=== PATIENT | female | born 1950 | race Caucasian/White ===

== ENCOUNTER 2017-07-01 17:46 | Inpatient (IN) | payer MEDICARE, BC ==
[2017-07-01] MEDS ORDERED: Ondansetron HCl/PF 4 MG/2 ML Vial IVP PRN ×2 (20:32→20:36)
[2017-07-01] MEDS ORDERED: Sodium Chloride 0.9% 1,000 ML IV SCH (20:32)
[2017-07-01] MEDS ORDERED: Ondansetron ODT 4 MG TAB SL PRN (20:32)
[2017-07-01] MEDS ORDERED: Ondansetron ODT 4 MG TAB PO PRN (20:36)
[2017-07-01] MEDS ORDERED: Dextrose 50% Abboject 50 ML SYRINGE SLOW IVP PRN (20:36)
[2017-07-01] MEDS ORDERED: Dextrose 5% in Water 1,000 ML IV PRN (20:36)
[2017-07-01] MEDS ORDERED: hydrALAZINE 20 MG/ML VIAL SLOW IVP PRN (20:36)
[2017-07-01] MEDS ORDERED: HumaLOG 300 UNITS/3 ML VIAL SC PRN (20:36)
[2017-07-01] MEDS ORDERED: Ketorolac Tromethamine 30 MG/ML VIAL IVP PRN (20:39)
[2017-07-01] MEDS ORDERED: traMADol HCl 50 MG TAB PO PRN ×2 (20:42)
[2017-07-01] MEDS ORDERED: Scopolamine 1.5 mg/72 hour Patch TD SCH (21:30)
[2017-07-01] MEDS: Pregabalin 50 MG CAP PO SCH (21:49)
[2017-07-01] MEDS: Famotidine/PF 20 mg/2ml Vial SLOW IVP SCH (21:49)
[2017-07-01] MEDS: Enoxaparin Sodium 40 MG/0.4 ML SYRINGE SC SCH (21:50)
[2017-07-01] MEDS: Sodium Chloride 0.9% 1,000 ML IV SCH (21:51)
[2017-07-01] MEDS ORDERED: Piperacillin/Tazobactam 3.375 GM in Sodium Chloride 0.9% 100 ML IVPB SCH (22:00)
[2017-07-01] MEDS: Acetaminophen 1,000 MG in Premix Bag 1 BAG IVPB SCH (23:57)
[2017-07-01] MEDS: ALPRAZolam 0.5 MG TAB PO PRN (23:57)
[2017-07-02 00:13] VITALS: BMI 43.4
[2017-07-02] MEDS: Piperacillin/Tazobactam 3.375 GM in Sodium Chloride 0.9% 100 ML IVPB SCH ×2 (00:41→06:24)
[2017-07-02 05:17] LABS: #Lymphocytes 0.8 thou/uL (1.20-3.40); #Neutrophils 14.9 thou/uL (1.40-6.50); %Basophils 0.1 % (0.0-1.0); %Eosinophils 0.2 % (0.0-10.0); %Lymphocytes 4.6 % (21.0-51.0); %Monocytes 5.9 % (0.0-10.0); Hematocrit 30.9 % (36.0-47.0); Red Blood Cell (RBC) Count 3.29 mill/uL (4.20-5.40); White Blood Cell (WBC) Count 16.7 thou/uL (4.8-10.8)
[2017-07-02 05:30] LABS: ALT (SGPT) 344 U/L (8-55); AST (SGOT) 226 U/L (5-34); Alkaline Phosphatase 379 U/L (40-150); Anion Gap 12 mmol/L (10-20); BUN (Urea Nitrogen) 29 mg/dL (9.8-20.1); Calc. Creatinine Clearance 78 mL/min (70-130); Calcium 8.6 mg/dL (7.8-10.44); Carbon Dioxide 19 mmol/L (23-31); Chloride 111 mmol/L (98-107); Estimated GFR-MDRD 42; Globulin 2.6 g/dL (2.4-3.5); Protein, Total 5.7 g/dL (6.0-8.3)
--- NOTE | 2017-07-02 05:46 | HP ---
HISTORY OF PRESENT ILLNESS: Melanie Sim is a 66-year-old female who presents to the emergency r o with epigastric right upper quadrant pain, transferred to our emergency room from [facility]. Patient lives near [facility] with her . She has not had previous such described sympt oms. In the emergency room, she was noted to have a white count of 14, hemoglobin of 12, BUN 26, GFR 85, creatinine 1.22, glucose 157, sodium 143, potassium 4.4, chloride 108, bilirubin was elevated to 4.2, AST 457, ALT 545, alkaline phosphatase 525. Lipase was normal at 20. Patient underwent gallbl adder ultrasound revealing a bile duct of 4 mm, fatty liver changes, sludge and stones in the lumen o f the gallbladder, sonographically positive Tillman's sign. Patient has had a prior laparoscopic Abhishek -en-Y gastric bypass. Dr. Lerma, for iron deficiency anemia, performed an upper endoscopy on 017 noting mild grade A erosive gastritis, post Abhishek-en-Y gastric bypass changes, he attempted colono scopy, but it was incomplete due to strictured colon. She subsequently underwent a barium enema with air contrast noting a very redundant colon, minimal diverticulosis, no other abnormalities noted. T here were no obstructive changes. HOME MEDICATIONS: Tramadol p.r.n., she does not take this every day; metformin 1000 mg at bedtime, L yrica 50 mg t.i.d., multivitamins daily, lisinopril 10 mg a day, 250 mg a day, Xanax 0.5 mg b.i .d.; Ultram p.r.n. for chronic low back pain, she does not take this every day; she has iron infusion s periodically, she takes multivitamins, post gastric bypass. TOBACCO: None. ALCOHOL: None. ALLERGIES: LATEX. PAST SURGICAL HISTORY: Left elbow surgery by Dr. Curiel two weeks ago at the [facility] i n 2007. She had a laparoscopic hiatal hernia repair and laparoscopic Abhishek-en-Y gastric bypass; preop erative weight 310 pounds, lost down to 225 pounds, her weight now is 244 pounds. In 1998, total abd ominal hysterectomy, bilateral salpingo-oophorectomy, and surgery for vulvar cancer with radiation th erapy, lymph node dissection, chemotherapy in 2010. 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 REVIEW OF SYSTEMS: Ten-point otherwise noncontributory. PHYSICAL EXAMINATION: VITAL SIGNS: Weight 110 kilograms, temperature 99.3 degrees, respiratory rate 14, blood pressure 110 /70, heart rate 93. HEAD, EYES, EARS, NOSE AND THROAT: Unremarkable. Sclerae nonicteric. LUNGS: Clear to auscultation. CARDIAC: Regular rhythm without murmur or gallop. ABDOMEN: Obese, soft. Tenderness in right upper quadrant with guarding. EXTREMITIES: Unremarkable. SKIN: Nonjaundiced. ASSESSMENT AND PLAN: 1. Cholecystitis, acute. We would recommend intravenous antibiotics, IV fluids, n.p.o. except for e ssential medications. We would plan laparoscopic cholecystectomy tomorrow, cholangiograms. Her live r function test elevation is suspicious for choledocholithiasis, but her bile duct is only 4 mm in di ameter by ultrasound. We will obtain cholangiogram. If she does have choledocholithiasis, she may n eed to be transferred for ERCP, which would be difficult status post Abhishek-en-Y gastric bypass. 2. Morbid obesity, status post Abhishek-en-Y gastric bypass. 3. LATEX allergy. 4. History of squamous cell carcinoma of the anus, status post radiation. 5. History of vulvar cancer, status post radiation surgery. 6. Diabetes mellitus. 7. Hypertension. 8. Lymphedema. 9. Anxiety.
[2017-07-02] MEDS: Sodium Chloride 0.9% 1,000 ML IV SCH ×2 (06:16→14:53)
[2017-07-02] MEDS: Acetaminophen 1,000 MG in Premix Bag 1 BAG IVPB SCH ×2 (06:16→11:42)
[2017-07-02] MEDS: Pregabalin 50 MG CAP PO SCH ×3 (09:01→21:43)
[2017-07-02] MEDS: Morphine PF 1 MG/ML SYR IVP PRN ×2 (09:07→23:18)
[2017-07-02] MEDS: Famotidine/PF 20 mg/2ml Vial SLOW IVP SCH (09:15)
[2017-07-02] MEDS ORDERED: Bupivacaine/Epinephrine 0.25% 30 ML VIAL ONE (11:01)
[2017-07-02] MEDS ORDERED: Fentanyl 250 MCG/5 ML VIAL ONE (11:20)
[2017-07-02] MEDS ORDERED: Iothalamate Meglumine 60% 50 ML VIAL FS ONE (11:35)
[2017-07-02] MEDS ORDERED: Propofol 200 MG/20 ML VIAL ONE (11:42)
[2017-07-02] MEDS ORDERED: Dexamethasone 20 MG/5 ML VIAL ONE (11:42)
[2017-07-02] MEDS ORDERED: Esmolol 100 MG/10 ML VIAL ONE (11:42)
[2017-07-02] MEDS ORDERED: PHENYLEPHRINE-NS 100 MCG/ML 10 ML SYRINGE ONE (11:42)
[2017-07-02] MEDS ORDERED: Glycopyrrolate 0.2 MG/ML 5 ML SYRINGE ONE (11:42)
[2017-07-02] MEDS ORDERED: ePHEDrine/0.9% NaCl/PF SYRINGE 50 mg/10 ml ONE (11:42)
[2017-07-02] MEDS ORDERED: Lidocaine 1% PF 5 ML VIAL ONE (11:42)
[2017-07-02] MEDS ORDERED: Ondansetron HCl/PF 4 MG/2 ML Vial ONE (11:42)
[2017-07-02] MEDS ORDERED: Piperacillin/Tazobactam 3.375 GM VIAL ONE (11:58)
[2017-07-02] MEDS ORDERED: Promethazine HCl 25 MG/ML VIAL ONE (13:26)
[2017-07-02] MEDS ORDERED: Midazolam HCl 2 mg/2 ml Vial ONE (13:29)
--- NOTE | 2017-07-02 13:33 | OP ---
DATE OF PROCEDURE: 07/02/2017 PREOPERATIVE DIAGNOSES: Cholecystitis, cholelithiasis, common bile duct 6 mm by ultrasound and eleva eder liver function tests, and history of Abhishek-en-Y gastric bypass. POSTOPERATIVE DIAGNOSES: Cholecystitis, cholelithiasis, and common bile duct 6 millimeters by ultras ound and elevated liver function tests, history of Abhishek-en-Y gastric bypass with positive cholangiogr am and drainage of contrast into the duodenum with multiple large filling defects and a dilated commo n bile duct (definitely size greater than 6 mm contrary to preoperative ultrasound). PROCEDURE: Laparoscopic cholecystectomy, laparoscopic cholangiograms revealing multiple filling defe cts in the common bile duct with drainage into the duodenum and multiple small debris draining from t he cystic duct, stapled white load Endo-FORREST cystic duct closure due to the large nature. SURGEON: Dhiraj Rutherford M.D. ANESTHESIA: General. NOTE: I discussed with Dr. Barreto and Dr. Tania Read [facility] gastroenterologists, transferred f or an intraoperative ERCP through the gastric remnant and we will plan to transfer this weekend for p rocedure earlier next week. ESTIMATED BLOOD LOSS: Less than 25 mL. BLOOD TRANSFUSED: None. COMPLICATIONS: None. SPECIMEN: Gallbladder and contents. PROCEDURE: The patient taken to the operating room where under general anesthesia, abdomen was prepa red with ChloraPrep, draped in routine fashion. Local anesthetic infiltrated in the skin and subcuta neous tissue about each port sites. Due to her morbid obesity status, supraumbilical incision made i n midline and pneumoperitoneum to 15 mmHg obtained with the Veress needle, replacing it with a 5 port and laparoscope inserted. Right subxiphoid incision made and 11 port placed. Right subcostal incis ion made, mid clavicular anterior axillary lines and 5 ports placed. Liver appeared to be normal. F undus of gallbladder grasped and reflected cephalad. Omental adhesions to the gallbladder body taken down and stripped down identifying the infundibulum of the gallbladder, reflecting it laterally. Cy stic artery and duct dissected free. Critical view obtained, 2/3 dissection cystic plate and cystic artery identified, doubly clipped proximally. Cystic ducts then clipped on the gallbladder side. An opening made in the cystic duct and cholangiocath inserted and cholangiogram was obtained using fluo roscopy revealing free flow of contrast into the duodenum, but the common bile duct was markedly dila eder. There are multiple filling defects. Cholangiocath removed and debris irrigated with pulse irri gator and then the cystic duct stump was evaluated and it was too large to seal with a clip. The 11 mm port exchanged for a 12 port under laparoscopic visualization and a white load Endo-FORREST stapler us ed to seal the cystic duct under laparoscopic visualization and the gallbladder dissected free from t he liver bed obtaining good hemostasis prior to division of final peritoneal attachments. Gallbladde r and contents removed. Good hemostasis ensured. I then discussed with Dr. Barreto, Dr. Read per telephone and best option would be to transfer her for intraoperative General liaison inspection laboratory assistant at [facility] for ERCP and decompression. The patient tolerated the procedure well as irri abdirashid and pneumoperitoneum evacuated. Good hemostasis ensured. All instruments removed and all skin incisions approximated with interrupted subdermal 4-0 Monocryl and DermaGlue applied.
[2017-07-02] MEDS ORDERED: Fentanyl 100 MCG/2 ML VIAL ONE (13:42)
[2017-07-02] MEDS ORDERED: ALPRAZolam 0.5 MG TAB PO PRN ×2 (14:28→14:37)
[2017-07-02] MEDS ORDERED: Cyclobenzaprine 10 MG TAB PO PRN (14:28)
[2017-07-02] MEDS ORDERED: traMADol HCl 50 MG TAB PO PRN (14:28)
[2017-07-02] MEDS ORDERED: PROVENTIL INHALER 6.7 G (200 INHALATIONS) INH PRN (14:28)
[2017-07-02] MEDS: Morphine 4 MG/ML VIAL SLOW IVP PRN ×2 (14:52→18:02)
[2017-07-02] MEDS ORDERED: rOPINIRole HCl 1 MG TAB PO SCH (15:00)
[2017-07-02] MEDS: rOPINIRole HCl 1 MG TAB PO SCH ×2 (17:34→21:43)
--- NOTE | 2017-07-02 17:37 | RAD ---
CHEST ONE VIEW 07/02/17 HISTORY: Central line placement. COMPARISON: Chest one view 08/11/16. FINDINGS: No pneumothorax is appreciated. The central venous catheter tip is in the cavoatrial junction. Lungs are hypoinflated with vascular crowding and linear opacity in the left lung base. Severe degenerative disease of both shoulder joints. IMPRESSION: Uncomplicated placement of central venous catheter with tip at the cavoatrial junction. POS: [facility]
[2017-07-02] MEDS: Piperacillin/Tazobactam 3.375 GM, Admixture Fee 1 EACH in Sodium Chloride 0.9% 100 ML IVPB SCH ×2 (18:07→23:18)
--- NOTE | 2017-07-02 18:44 | PRG ---
DATE OF SERVICE: 07/02/2017 I have discussed the plan with Roney's family regarding transfer to [facility]. I have discussed her care with Dr. Barreto and his associate, Dr. Read, and their P A, Isabel. Plan is to transfer them on 07/04/2017Wednesday to the [facility] receiving Hospitalist who I have talked to on the phone regarding the transfer and they will then undergo surgically salomon eder laparoscopy or laparotomy, ERCP through the gastric remnant. Questions answered. The patient christianson s poor IV access and a central line was placed for administration of intravenous antibiotics and preh ospital care. She will be transferred by ambulance on Wednesday.
--- NOTE | 2017-07-02 19:42 | OP ---
PREOPERATIVE DIAGNOSES: Morbid obesity, poor IV access, choledocholithiasis. POSTOPERATIVE DIAGNOSES: Morbid obesity, poor IV access, choledocholithiasis. PROCEDURE: Right subclavian vein central line. SURGEON: Dr. Dhiraj Rutherford ANESTHESIA: 1% Xylocaine. PROCEDURE: At the patient's bedside in sterile technique, right periclavicular area was prepared wit h chloraprep, draped in routine fashion. A 1% Xylocaine infiltrated into skin and subcutaneous tissu e about the operative site. Trocar catheter introduced infraclavicular right subclavian vein and goo d return of venous blood obtained. J-wire threaded, trocar catheter removed. Seldinger technique us ed to place triple lumen catheter, removing the J-wire, securing the catheter with 3-0 silk suture. Biopatch sterile dressing applied. Each port aspirated blood and flushed with saline solution.
[2017-07-02] MEDS: Enoxaparin Sodium 40 MG/0.4 ML SYRINGE SC SCH (21:43)
[2017-07-02] MEDS ORDERED: Acetaminophen 500 MG TAB PO PRN (23:59)
[2017-07-03] MEDS: Piperacillin/Tazobactam 3.375 GM, Admixture Fee 1 EACH in Sodium Chloride 0.9% 100 ML IVPB SCH ×4 (05:27→23:59)
[2017-07-03 05:29] LABS: #Basophils 0.2 thou/uL (0.0-0.2); #Lymphocytes 0.5 thou/uL (1.20-3.40); #Monocytes 0.7 thou/uL (0.11-0.59); %Basophils 1.2 % (0.0-1.0); %Eosinophils 0.1 % (0.0-10.0); %Lymphocytes 3.4 % (21.0-51.0); %Monocytes 4.4 % (0.0-10.0); Hematocrit 31.1 % (36.0-47.0); Mean Platelet Volume 7.6 fL (7.4-10.4); Red Blood Cell (RBC) Count 3.31 mill/uL (4.20-5.40); White Blood Cell (WBC) Count 15.4 thou/uL (4.8-10.8)
[2017-07-03 05:59] LABS: ALT (SGPT) 259 U/L (8-55); AST (SGOT) 119 U/L (5-34); Alkaline Phosphatase 338 U/L (40-150); Anion Gap 11 mmol/L (10-20); BUN (Urea Nitrogen) 20 mg/dL (9.8-20.1); Bilirubin, Total 3.3 mg/dL (0.2-1.2); Calc. Creatinine Clearance 82 mL/min (70-130); Calcium 8.8 mg/dL (7.8-10.44); Carbon Dioxide 22 mmol/L (23-31); Chloride 106 mmol/L (98-107); Estimated GFR-MDRD 45; Globulin 2.8 g/dL (2.4-3.5); Protein, Total 5.8 g/dL (6.0-8.3)
--- NOTE | 2017-07-03 07:35 | DIS ---
DATE OF ADMISSION: 07/01/2017 ANTICIPATED TRANSFER: [facility], 07/04/2017. DISCHARGE DIAGNOSES: Choledocholithiasis, cholecystitis, acute and chronic, morbid obesity, metaboli c syndrome, type 2 diabetes mellitus, mild chronic kidney disease. HOME MEDICATIONS: Ropinirole 1 tab p.o. t.i.d., tramadol p.r.n., metformin 1000 mg at bedtime, Kinza a 50 mg t.i.d., multivitamins daily, lisinopril 10 mg a day, Lactobacillus 1 capsule daily, Flexeril 10 mg as directed p.r.n., vitamin D3 daily, buspirone 30 mg daily, albuterol 2 puffs as directed, alp razolam 1 tablet 0.5 mg p.o. b.i.d. as needed. PROCEDURES AT HOSPITALIZATION: 1. On 07/01/2017, ultrasound gallstones, bile duct 6 mm, positive sonographic Tillman's sign. White count 16, hemoglobin 9.8. Sodium 138, chloride 111, bilirubin 4.0, AST 226, ALT 344, alkaline phosph atase 379, BUN ranged from normal 10 to 25 to 29 over the years. Creatinine normal 0.7 to 1.27, 07/17 is 1.07; 07/01/2017, 1.22. 2. Chronic iron-deficiency anemia on an iron infusion administered by Hematology. 3. Status post left elbow surgery, Dr. Curiel to have golden out next week. We will contact clayton townsend Allergies to LATEX. 4. Recent upper endoscopy by Dr. Lerma performed for iron-deficiency anemia. 5. Recent colonoscopy by Dr. Lerma, Gastroenterology, revealing inability to cannulate and negotiate sigmoid colon, completion of barium enema normal without obstructive lesions or abnormalities. 6. History of vulvar cancer, status post chemoradiation therapy. 7. History of squamous cell carcinoma of the anus, status post chemoradiation therapy. 8. History of hysterectomy. PROCEDURES DURING THIS HOSPITALIZATION: Ultrasound as noted above, laparoscopic cholecystectomy, cho langiograms, contrast drainage of the duodenum, multiple filling defects in the common bile duct, acu te cholecystitis, thickened wall. HISTORY: A 66-year-old female presents with a several week history of intermittent right flank pain, right upper quadrant pain, anorexia. She has a history of laparoscopic Abhishek-en-Y gastric bypass. S he lost weight initially, regained weight. She has been evaluated for iron-deficiency anemia with up per endoscopy and follow by Hematology with iron infusions. She takes her vitamins daily. She prese nts on this occasion with severe right upper quadrant pain and white count of 14 on admission, 16 on 07/02/2017. Liver function tests elevated as described. The patient underwent laparoscopic cholecys tectomy and cholangiograms, above findings. With her Abhishek-en-Y gastric bypass status, discussion was held with Dr. Dennis and Dr. Read. Our plan is to transfer to [facility], Wednesday, for laparoscopic or general surgical assistance for gastric remnant cannulation and ERCP. Harman jacobs will follow up in my office in 2 to 3 weeks.
[2017-07-03] MEDS ORDERED: Non-Formulary Item 1 EACH (Buspirone Hcl [Buspirone Hcl] 30 MG) PO SCH (09:00)
[2017-07-03] MEDS ORDERED: Lisinopril 20 MG TAB PO SCH (09:00)
[2017-07-03] MEDS ORDERED: Non-Formulary Item 1 EACH (Multivitamin [Multivitamins] 1 CAP) PO SCH (09:00)
[2017-07-03] MEDS ORDERED: Non-Formulary Item 1 EACH (Cholecalciferol (Vitamin D3) [Vitamin D3] 5,000 UNIT) PO SCH (09:00)
[2017-07-03] MEDS ORDERED: Non-Formulary Item 1 EACH (Lactobacillus Acidophilus [Probiotic] 1 CAPSULE) PO SCH (09:00)
[2017-07-03] MEDS: Pregabalin 50 MG CAP PO SCH ×3 (09:10→20:15)
[2017-07-03] MEDS: Lactinex Tablet PO SCH (09:12)
[2017-07-03] MEDS: Multivit, Therapeutic 1 TAB PO SCH (09:12)
[2017-07-03] MEDS: busPIRone HCl 10 MG TAB PO SCH (09:13)
[2017-07-03] MEDS: Lisinopril 10 MG TAB PO SCH (09:14)
[2017-07-03] MEDS: rOPINIRole HCl 1 MG TAB PO SCH ×3 (09:16→20:16)
--- NOTE | 2017-07-03 09:58 | RAD ---
OPERATIVE CHOLANGIOGRAM: Date: 07/02/17 HISTORY: Intraoperative film. FINDINGS: This single film shows several filling defects in the distal common duct which is very suspicious for stones. There is also a probable stone in the proximal duct near the bifurcation. IMPRESSION: Filling defects within the common duct very suspicious for gallstones. POS: [facility]
--- NOTE | 2017-07-03 13:15 | PRG ---
DATE OF SERVICE: 07/03/2017 ATTENDING PHYSICIAN: Dwain Adan M.D. SUBJECTIVE: The patient is postoperative day #1 status post laparoscopic cholecystectomy with IOC. Multiple filling defects in the common bile duct were noted. Due to the patient's previous history of Abhishek-en-Y gastric bypass, transfer to [facility] is needed for general surgical assistance for gastric remnant cannulation and ERCP. At this time, she remains stable on the surgical floor. She denies passing flatus or having bowel movement. WBC is trending down slightly from 16.7-15.4. She continues on IV Zosyn. OBJECTIVE: VITAL SIGNS: Temperature 98.3, pulse 93, respirations 18, O2 sat 93% on room air, blood pressure 102/54. HEENT: Unremarkable. HEART: Regular rate and rhythm. LUNGS: Clear to auscultation. ABDOMEN: Laparoscopic surgical incisions without signs or symptoms of infection. Minimal incisional tenderness. No guarding, no masses. EXTREMITIES: Neurovascularly intact. NEUROLOGIC: Awake, alert and oriented x3. ASSESSMENT: 1. Cholecystitis with cholelithiasis status post laparoscopic cholecystectomy. 2. S/P Intraoperative cholangiogram with filling defect noted. 3. History of Abhishek-en-Y gastric bypass. PLAN: Continue current care as ordered. Plan to transfer to [facility] for assistance with needed ERCP in AM. History, surgical procedures and plan of care have been discussed with the accepting physicians by Dr. Rutherford. Review of systems, assessment and plan of care have been discussed with attending trauma surgeon. REYNALDO
[2017-07-03] MEDS: Enoxaparin Sodium 40 MG/0.4 ML SYRINGE SC SCH (20:12)
[2017-07-04] MEDS: ALPRAZolam 0.5 MG TAB PO PRN (01:36)
[2017-07-04] MEDS: Piperacillin/Tazobactam 3.375 GM, Admixture Fee 1 EACH in Sodium Chloride 0.9% 100 ML IVPB SCH (06:20)
[2017-07-04] MEDS: rOPINIRole HCl 1 MG TAB PO SCH (08:44)
[2017-07-04] MEDS: Multivit, Therapeutic 1 TAB PO SCH (08:44)
[2017-07-04] MEDS: busPIRone HCl 10 MG TAB PO SCH (08:44)
[2017-07-04] MEDS: Pregabalin 50 MG CAP PO SCH (08:45)
[2017-07-04] MEDS: Lactinex Tablet PO SCH (08:45)
[2017-07-04] MEDS: Lisinopril 10 MG TAB PO SCH (08:49)
[2017-07-04 10:18] VITALS: BP 119/61; TEMP 98.5
== END 2017-07-04 09:57 | disposition short-term general hospital (02) | DRG 418 ==
LOC: ERS 17:46 → INTOOBSV 18:10 → SURG A 18:10 → OBSVTOIN 07-02 15:05
PROVIDERS: ADMIT Specialist; ATTEND Specialist
PROC: 0FT44ZZ Resection of Gallbladder, Percutaneous Endoscopic Approach (ICD-10-PCS; principal; 2017-07-02)
PROC: BF101ZZ Fluoroscopy of Bile Ducts using Low Osmolar Contrast (ICD-10-PCS; 2017-07-02)
PROC: 02HV33Z Insertion of Infusion Device into Superior Vena Cava, Percutaneous Approach (ICD-10-PCS; 2017-07-02)
PROC: B5181ZA Fluoroscopy of Superior Vena Cava using Low Osmolar Contrast, Guidance (ICD-10-PCS; 2017-07-02)
DX: K80.00 Calculus of gallbladder with acute cholecystitis without obstruction (principal); K80.42 Calculus of bile duct with acute cholecystitis without obstruction; E88.81 Metabolic syndrome and other insulin resistance; I10 Essential (primary) hypertension; E11.9 Type 2 diabetes mellitus without complications; D50.9 Iron deficiency anemia, unspecified; Z68.41 Body mass index [BMI] 40.0-44.9, adult; E66.01 Morbid (severe) obesity due to excess calories; Z98.84 Bariatric surgery status; Z85.048 Personal history of other malignant neoplasm of rectum, rectosigmoid junction, and anus; Z85.44 Personal history of malignant neoplasm of other female genital organs; I89.0 Lymphedema, not elsewhere classified; F41.9 Anxiety disorder, unspecified; Z87.891 Personal history of nicotine dependence
CPT/HCPCS: 36415; 36416; 47532; 71010; 80053; 85025; 88304; 93005; J0131; J1100; J1610; J1642; J1650; J1750; J1885; J1956; J2001; J2250; J2270; J2274; J2405; J2543; J2550; J2704; J3010; J7050; Q9961; S0028

== ENCOUNTER 2017-11-04 17:14 | Inpatient (IN) | payer MEDICARE, BC ==
[2017-11-04 20:28] LABS: #Eosinphils 0.1 thou/uL (0.0-0.7); #Lymphocytes 1.1 thou/uL (1.20-3.40); #Monocytes 0.6 thou/uL (0.11-0.59); #Neutrophils 6.7 thou/uL (1.40-6.50); %Basophils 0.1 % (0.0-1.0); %Eosinophils 0.9 % (0.0-10.0); %Lymphocytes 13.3 % (21.0-51.0); %Monocytes 6.5 % (0.0-10.0); %Neutrophils 79.2 % (42.0-75.0); Hemoglobin 11.7 g/dL (12.0-16.0); Mean Corpuscular HGB CONC 32.1 g/dL (32.0-36.0); Mean Corpuscular Hemoglobin 29.1 pg (27.0-31.0); Mean Corpuscular Volume 90.7 fl (81.0-99.0); Mean Platelet Volume 7.6 fL (7.4-10.4); Platelet Count 207 thou/uL (130-400); RBC Distribution Width 13.4 % (11.5-14.5); White Blood Cell (WBC) Count 8.4 thou/uL (4.8-10.8)
[2017-11-04 20:47] LABS: ALT (SGPT) 7 U/L (8-55); AST (SGOT) 15 U/L (5-34); Albumin 3.6 g/dL (3.4-4.8); Alkaline Phosphatase 98 U/L (40-150); Anion Gap 16 mmol/L (10-20); BUN (Urea Nitrogen) 15 mg/dL (9.8-20.1); Bilirubin, Total 0.2 mg/dL (0.2-1.2); CK (CPK) 41 U/L (29-168); Calc. Creatinine Clearance 0 mL/min (70-130); Calcium 8.9 mg/dL (7.8-10.44); Carbon Dioxide 21 mmol/L (23-31); Chloride 106 mmol/L (98-107); Estimated GFR-MDRD 54; Globulin 3.3 g/dL (2.4-3.5); Glucose 168 mg/dL (80-115); Potassium 4.4 mmol/L (3.5-5.1); Protein, Total 6.9 g/dL (6.0-8.3); Sodium 139 mmol/L (136-145)
[2017-11-04 20:52] LABS: Troponin I 0.063 ng/mL (< 0.028)
[2017-11-04] MEDS ORDERED: cefTRIAXone\\ROCEPHIN 2 GM in Sodium Chloride 0.9% 100 ML IVPB SCH (21:00)
--- NOTE | 2017-11-04 21:40 | RAD ---
RADIOGRAPH CHEST 1 VIEW: Date: 11/04/17 Time: 6:59 p.m. HISTORY: 67-year-old female with cough and chest congestion. COMPARISON: 07/02/17. FINDINGS: New finding of patchy nodular pulmonary densities in the right mid and lower lung zones. Questionable such patch pulmonary densities at the retrocardiac left lower lobe. No cardiomegaly. Previously demo nstrated right subclavian central line has been removed. IMPRESSION: 1. Right mid and lower lung zone mild patchy nodular infiltrates. 2. Possible infiltrates in left lower lobe. 3. Recommend followup. ANTONIO [] POS: [facility]
[2017-11-04] MEDS ORDERED: methylPREDNISolone Sod Succ/PF 125 MG/2 ML VIAL ONE (21:59)
[2017-11-04] MEDS ORDERED: Albuterol Sulfate 2.5 mg/3 ml Neb ONE ×3 (22:04→22:48)
[2017-11-04] MEDS ORDERED: Azithromycin 500 MG VIAL ONE (22:41)
[2017-11-04 23:55] LABS: Troponin I 1.846 ng/mL (< 0.028)
[2017-11-05] MEDS ORDERED: Ondansetron HCl/PF 4 MG/2 ML Vial IVP PRN (00:57)
[2017-11-05] MEDS ORDERED: Acetaminophen 325 MG TAB PO PRN (00:57)
[2017-11-05] MEDS ORDERED: Ondansetron ODT 4 MG TAB SL PRN (00:57)
[2017-11-05] MEDS ORDERED: Sodium Chloride 0.9% 1,000 ML IV SCH (00:57)
[2017-11-05] MEDS ORDERED: Enoxaparin Sodium 100 MG/ML SYRINGE SC SCH (01:45)
[2017-11-05 03:49] LABS: Troponin I 1.854 ng/mL (< 0.028)
[2017-11-05] MEDS ORDERED: Dextrose 5% in Water 1,000 ML IV PRN (03:50)
[2017-11-05] MEDS ORDERED: Dextrose 50% Abboject 50 ML SYRINGE SLOW IVP PRN (03:50)
[2017-11-05] MEDS ORDERED: Ondansetron ODT 4 MG TAB PO PRN (03:50)
[2017-11-05] MEDS ORDERED: Guaifenesin DM 100-10/5 ML UDCUP PO PRN (03:50)
--- NOTE | 2017-11-05 06:20 | HP ---
PRIMARY CARE PHYSICIAN: Dr. Limon. CHIEF COMPLAINT: Cough and shortness of breath. HISTORY OF PRESENT ILLNESS: Ms. Sim is a very pleasant 67-year-old female that has history of h ypertension and diabetes. She says that in August, she started coughing, it was a dry cough, but it got progressively worse. She admits that she never sought any medical attention for the cough. She started coughing up some greenish brown sputum more recently. She also noted some subjective fever and chills and difficulty resting due to feeling short of breath. For this reason, she came into the ER for evaluation. In the ER, she had a chest x-ray done, which showed some patchy infiltrates in t he right lung base and mid lung field and possible infiltrate in the left lower lobe as well. Her tr oponin was also elevated and for this reason she is being admitted for community-acquired pneumonia w ith sepsis. REVIEW OF SYSTEMS: This was difficult as the patient was extremely sleepy and falling asleep during the encounter. However, she has had some subjective fever and chills, but no night sweats or weight loss. HEENT: She denies any headaches, no dizziness, no visual changes, no sore throat, rhinorrhea, neck pain, no adenopathy. Pulmonary: As the history of present illness. No hemoptysis was noted. She does note shortness of breath. Cardiovascular: No chest pain, no PND, no orthopnea. She has n oted some lower extremity edema. Gastrointestinal: No abdominal pain, no nausea, no vomiting, no ch mary in bowels. Genitourinary: No urinary frequency, hematuria, no hesitancy. Neurologic: No foca l weakness, numbness, no seizures. Psychiatric: No symptoms of anxiety or depression. Skin and Int egument: No skin changes. No rash. PAST MEDICAL HISTORY: Significant for vulvar cancer, anal squamous cell carcinoma, diabetes mellitus , hypertension, lymphedema, anxiety. PAST SURGICAL HISTORY: She has had left elbow surgery; laparoscopic hiatal hernia repair; Abhishek-en-Y gastric bypass, which was laparoscopically done; total abdominal hysterectomy; bilateral salpingo-oop horectomy; surgery for vulvar cancer and lymph node dissection. SOCIAL HISTORY: She is a nonsmoker, nondrinker. FAMILY HISTORY: No known history of any inheritable diseases. CURRENT MEDICATIONS: Include alprazolam 0.5 mg twice a day as needed, BuSpar 30 mg twice a day, [place] dryl 50 mg q.4 hours as needed, Flonase nasal spray in each nare daily, lisinopril 10 mg daily, Kinza a 50 mg t.i.d., metformin 1000 mg at bedtime, ropinirole 1 mg t.i.d. and ipratropium nasal spray. PHYSICAL EXAMINATION: GENERAL: She is alert, but very sleepy. VITAL SIGNS: Blood pressure was 146/78, heart rate 93, respiratory rate of 18, temperature was 99.3, O2 sats 94% on 2 liters. HEENT: Pupils are equal, round, and reactive. Extraocular muscles are intact. Sclerae are anicteri c. Throat: No erythema, no exudates. NECK: No adenopathy, no bruits. LUNGS: She has got bilateral wheezing, rales and rhonchi throughout much of both lung guerrero. CARDIOVASCULAR: She has a normal S1, S2. I did not appreciate an S3 or S4. No murmurs, clicks or r ubs. ABDOMEN: Obese, it is soft, nontender, nondistended. Positive for bowel sounds. No rebound, no gua rding. EXTREMITIES: She has got some trace pedal edema, and her right lower extremity, there is some mild e rythema. NEUROLOGIC: The exam was nonfocal. LABORATORY RESULTS: Sodium 139, potassium 4.4, chloride is 106, CO2 is 21, BUN is 15, creatinine 1.0 2, glucose is 168. White blood cell count 8.4, hemoglobin 11.7, hematocrit is 36.3, platelet count i s 207. Troponin has gone as high as 1.8. ASSESSMENT AND PLAN: 1. This is a 67-year-old female that presents with shortness of breath and cough. X-ray findings co nsistent with pneumonia. She has not had any recent hospitalizations at least not within the last 3 months. Therefore, this is likely a community-acquired pneumonia. She has an elevated troponin like ly as a result of demand ischemia and therefore there is probably some degree of sepsis involved as w ell. She will be admitted to telemetry. We will treat her with Rocephin and azithromycin. Continue DuoNebs for bronchospasms and gentle IV hydration. 2. For elevated troponin, again this is more likely as a result of the pneumonia than it is to prima ry coronary artery disease; however, she has already been placed on full dose Lovenox. We will consi alejandra this as well as aspirin therapy. Get an echocardiogram and consult Cardiology. 3. For diabetes mellitus, her home medications can be restarted with the exception of metformin and we will place her on a sliding scale insulin. 4. Hypertension. Again, we will start her usual medications including the lisinopril with p.r.n. me dications as needed.
[2017-11-05] MEDS ORDERED: Enoxaparin Sodium 120 MG/0.8 ML SYRINGE SC SCH (09:00)
[2017-11-05] MEDS ORDERED: Famotidine/PF 20 mg/2ml Vial SLOW IVP SCH (09:00)
[2017-11-05] MEDS: Sodium Chloride 0.9% 1,000 ML IV SCH ×2 (10:19→17:59)
[2017-11-05] MEDS: rOPINIRole HCl 1 MG TAB PO SCH ×3 (10:20→20:37)
[2017-11-05] MEDS: Pregabalin 50 MG CAP PO SCH ×3 (10:20→20:37)
[2017-11-05] MEDS: busPIRone HCl 10 MG TAB PO SCH ×2 (10:21→20:37)
[2017-11-05] MEDS: ALPRAZolam 0.5 MG TAB PO PRN ×2 (10:23→20:37)
[2017-11-05] MEDS: Enoxaparin Sodium 100 MG/ML SYRINGE SC SCH ×2 (10:33→20:40)
[2017-11-05] MEDS: Aspirin 325 MG TAB PO SCH (10:39)
[2017-11-05] MEDS: Ipratropium Bromide 0.03% Nasal Inhaler 30 ml Bottle EA NARE SCH ×3 (13:07→21:21)
[2017-11-05] MEDS: Fluticasone Propionate Nasal Spray 16 gm Bottle NASAL SCH (13:07)
[2017-11-05] MEDS: HumaLOG 300 UNITS/3 ML VIAL SC PRN ×2 (13:10→21:23)
--- NOTE | 2017-11-05 15:37 | CON ---
DATE OF CONSULTATION: 11/05/2017. REASON FOR CONSULTATION: Elevated troponins. HISTORY OF PRESENT ILLNESS: Ms. Sim is a very pleasant 67-year-old white female who comes to [facility] for cough and shortness of breath. She has been dealing with an upper respiratory infecti on for the last 2-3 months. She finally had a repeat course of antibiotics recently and had a chest x-ray that showed multilobar pneumonia, so she was admitted from her primary care doctor's office. S he was admitted and started on IV antibiotics as she had failed p.o. therapy. Troponins were drawn w hich are mildly elevated, so Cardiology is being consulted for further evaluation and care. She qi es any chest pain, tightness or pressure. Only her shortness of breath and cough. She sees Dr. Asher er as an outpatient. The last time she saw him was a few months ago and was told everything was fine . PAST MEDICAL HISTORY: 1. Vulvar carcinoma. 2. Anal squamous cell carcinoma. 3. Type 2 diabetes. 4. Hypertension. 5. Lymphedema. 6. Anxiety. PAST SURGICAL HISTORY: 1. Left elbow surgery. 2. Laparoscopic hiatal hernia repair. 3. Abhishek-en-Y gastric bypass. 4. Total abdominal hysterectomy. 5. Bilateral salpingo-oophorectomy. 6. Vulvar cancer surgery and lymph node dissection. SOCIAL HISTORY: No alcohol, tobacco or drugs. FAMILY HISTORY: Noncontributory. OUTPATIENT MEDICATIONS: Include, 1. Alprazolam. 2. BuSpar. 3. Benadryl. 4. Flonase. 5. Lisinopril 10 mg a day. 6. Lyrica. 7. Metformin 1000 mg at bedtime. 8. Ropinirole. 9. Ipratropium. ALLERGIES: LATEX. REVIEW OF SYSTEMS: A 12-point review of systems was done and is all negative unless stated in the h istory of present illness. PHYSICAL EXAMINATION: VITAL SIGNS: Temperature 97.9, pulse 88, respiration rate 18, satting 96% on 2 liters, blood pressur e 132/69. GENERAL: Awake, alert, oriented x3, in no distress. HEENT: Normocephalic, atraumatic. NECK: Supple. LUNGS: Mild crackles at the bases. ABDOMEN: Soft, positive bowel sounds. EXTREMITIES: 2+ edema bilaterally. This is chronic. CARDIOVASCULAR: S1, S2, no S3, S4, no murmurs, no rubs. LABORATORY WORK: Reviewed. CBC was reviewed. Chemistries were reviewed. Lactic acid was normal. Troponin was 0.06, 1.8, and 1.8. BNP was 61. Albumin was 3.6. Blood cultures are negative. Flu are negative. EKG was reviewed. Chest x-ray was reviewed, multilobar pneumonia. ASSESSMENT AND PLAN: 1. Non-ST elevation myocardial infarction. Likely demand ischemia from her pneumonia. 2. Multilobar pneumonia. PLAN: 1. We will do an echocardiogram to assess LV function and valvular structures. If this is normal, n o further evaluation will be needed other than follow up with her primary svp for possible s tress testing in the near future. 2. Antibiotics per primary team. Thank you for letting us participate in the care of your patient. We will follow.
[2017-11-05] MEDS ORDERED: Multivitamins, Adult 10 ML, Folic Acid 1 MG, Thiamine HCl 100 MG in Dextrose 5 %-0.45 %... IV SCH ×4 (15:45)
[2017-11-05] MEDS ORDERED: Cyanocobalamin 1000 MCG/ML VIAL IM SCH (16:00)
[2017-11-05] MEDS: Carvedilol 3.125 MG TAB PO SCH ×2 (16:04→17:28)
--- NOTE | 2017-11-05 17:26 | CON ---
DATE OF CONSULTATION: 11/05/2017 CONSULTING PHYSICIAN: Hospitalist group. REASON FOR CONSULTATION: Chronic pneumonia following encompassed 70 minutes time spent with the rosalind ent. Of this 70 minutes, greater than 50% of the time was spent directly with the patient and/or on the patient's medical unit. HISTORY OF PRESENT ILLNESS: The patient is a 67-year-old female who states that she has been sick si nce late August. Her symptoms include cough, intermittent fever up to 103 and productive sputum. S he has wheezing and shortness of breath. She has been treated with several courses of antibiotics an d steroids as an outpatient and has not improved. PAST MEDICAL HISTORY: 1. Vulvar cancer, anal cell carcinoma. 2. Lymphedema of the right leg. 3. Diabetes mellitus. 4. Hypertension. 5. Anxiety. 6. Asthma. PAST SURGICAL HISTORY: 1. Left elbow surgery. 2. Laparoscopic hiatal hernia repair 3. Abhishek-en-Y gastric bypass surgery. 4. Total abdominal hysterectomy. 5. Bilateral salpingo-oophorectomy. 6. Vulvar resection. 7. Lymph node dissection. SOCIAL HISTORY: Quit smoking over 25 years ago after smoking 1 pack a day for 25 years, does not con sume alcohol. 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 She currently lives in [place]. She has lots of livestock including 4 chickens. She routinely harvest the legs. She also says bir ds and bird excrement on her porch. She says that the eggs that she harvest from chicken houses are not routinely cleaned prior to her ingesting them. FAMILY MEDICAL HISTORY: Unremarkable. MEDICATIONS PRIOR TO ADMISSION: Alprazolam, BuSpar, Benadryl, Flonase, lisinopril, Lyrica, metformin , ropinirole, ipratropium nasal spray. ALLERGIES: ADHESIVE TAPE and LATEX. REVIEW OF SYSTEMS: A 12-point review of systems was negative except for that mentioned above. PHYSICAL EXAMINATION: VITAL SIGNS: Temperature 97.9, pulse 88, respirations 18, O2 sat 96% on 2 liters, blood pressure 132 /69. GENERAL: The patient is 5 feet 3 inches. She weighs 229 pounds. BMI is 40. HEENT: Pupils react. Sclerae icteric. Oropharynx clear. NECK: Without adenopathy, JVD, or bruits. LUNGS: She has bilateral bronchi. She has crackles diffusely throughout both lung guerrero. CARDIAC: S1, S2 regular without murmur, rub, or gallop. ABDOMEN: Soft, obese, nontender, nondistended. EXTREMITIES: She has swelling of her right leg, left leg looks normal. NEUROLOGIC: Grossly intact throughout. SKIN: Shows no lesions. LABORATORY DATA: White blood cell count 8.4, hematocrit 36.3, platelet count 207. Chemistry values have not been obtained that I can find, but are ordered for tomorrow morning. X-ray shows patchy jami ateral infiltrates. ASSESSMENT: 1. Persistent symptoms of pneumonia despite apparent adequate outpatient treatment. 2. History of reactive airway disease. DISCUSSION: The duration of symptoms suggest that she might possibly have a secondary process. Hype rsensitivity pneumonitis would have to be suspected given her exposure to chickens, bird dander, and bird excrement. Chronic fungal pneumonia with histoplasmosis might also be in the differential given what is described above. RECOMMENDATIONS: I have recommended a limiting any exposure to bird dander and bird excrement. We w ill check a hypersensitivity pneumonitis panel. The main treatment is avoidance. I agree with the s teroids, antibiotics, and nebulization treatments. Additionally, I would add fluconazole on the odd chance that this could be histoplasmosis. Thank you for allowing me to see the patient. I will be happy to follow with you.
--- NOTE | 2017-11-05 18:39 | HP ---
HISTORY OF PRESENT ILLNESS: Melanie Sim is a 67-year-old morbidly obese female 5 feet 3 inches, 40 BMI, 229 pounds, who admitted this hospitalization, Hospitalist Service for cough, dyspnea with a bnormal chest x-ray, placed on antibiotics. I was asked to see her for patient's complaints of diarr hea, melanotic stools, and because she wanted to talk to me about her fecal incontinence and diarrhea . She has abnormal troponins and Dr. Hemphill was also seen her. Hemoglobin is 11.7, white count 8.4. Basic metabolic profile is unremarkable. Also, the patient on 07/02/2017 for cholecystitis, cholelithiasis, and she underwent laparoscopic cho lecystectomy, cholangiogram that were positive. Because of her previous laparoscopic gastric bypass, ERCP could not be performed and she was referred to Dr. Barreto in [place], who performed interventi onal gastroenterology approach, crossed her gastric pouch, her gastric remnant with a stent placed, a constant ERCP, sphincterotomy, stone extraction. About 2-3 weeks later, she had her stent removed. Dr. Barreto had informed me that he was going to see the patient regarding interventional procedure to reduce her gastric pouch and reduces; however, gastrojejunostomy to help her with weight loss, but the patient is unaware of this and did not follow up with him. She states perhaps she did not recal l this need to follow up. Dr. Lerma saw her in March 2017 and performed upper endoscopy and colonoscopy to the sigmoid colon. Sigmoid colon was fixed and stricture could not be accessed proximal. Upper endoscopy revealed very minimal hiatal hernia and changes consistent with Abhishek-en-Y gastric bypass and there were no ulcerat ions at the gastrojejunostomy. The patient subsequently had a barium enema air contrast on 7 revealed a very redundant colon, but no abnormalities. Patient reports a history of anal cancer, undergoing radiation and chemotherapy after biopsy for diag nosis. She reports history of radiation therapy for vulvar cancer. She has been told in the past at her anal sphincter is torn up or incompetent. She reports that she has diarrhea and reports 2-3 l oose stools per day, sometimes voluminous and sometimes incontinent at night. She has tried Imodium. She states that her diarrhea has been persistent for many years and was present before her cholecys tectomy and present before her sphincterotomy and ERCP. HOME MEDICATIONS: Tramadol, metformin. She does not take multivitamins. She takes iron and calcium occasionally. She reports melanotic stools and I have informed her that if she is taking iron genie engel that her stools may be black and she was surprised with this. Lyrica 50 mg t.i.d., Xanax as nee ded. PAST SURGICAL HISTORY: Left elbow surgery, Dr. Curiel. In 2007, she had a laparoscopic hiatal h ernia repair and laparoscopic Abhishek-en-Y gastric bypass in [place]. Preoperative weight 310 pounds, l ost down to 225 pounds. In 1998, total abdominal hysterectomy, bowel salpingo-oophorectomy, and surg day for vulvar cancer with radiation therapy, lymph node dissection and chemotherapy. In 2010, she h ad radiation and chemotherapy for anal cancer, squamous cell carcinoma. PHYSICAL EXAMINATION LUNGS: Clear to auscultation, rhonchi at base. CARDIAC: Regular rate and rhythm without murmur or gallop. ABDOMEN: Obese, soft, nontender. ASSESSMENT AND PLAN: 1. Diarrhea, 2-3 stools per day. This is not that significant of a problem. She can take Imodium o r Lomotil as needed. She can take fiber. 2. 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 The only thing I would have to offer for her diarrhea and sp hincter incontinence would be a colostomy and symptoms are not that severe that she is ready for that . I have suggested that she see a managing consultant or colorectal surgeon regarding evaluation to see if there is anything they can do to help her with her incontinence. I doubt there will be any solutions or no good outcomes for this. 3. She reports black stools, I have informed her that taking iron, we will call this and she was leila prised to hear this. 4. Status bariatric surgery, status post Abhishek-en-Y gastric bypass with significant weight loss. She has suffered weight regain. Dr. Beltre has told me after her ERCP that he could perform procedure s to reduce her gastric pouch and gastrojejunostomy as size that may help her weight loss, but she christianson s not followed up with him. I have encouraged her to do so. The patient should be taking vitamins every day as well as iron and calcium. She does not have infor med her other problems with anemia associated with Abhishek-en-Y gastric bypass and the fact that she nee ds to take her vitamins, especially B12 vitamins to prevent Wernicke-Korsakoffs. 5. Pneumonia. At this point, I will see her as needed. Please call if necessary. She can followup in the office if necessary.
[2017-11-05] MEDS: Atorvastatin Calcium 40 MG TAB PO SCH (20:37)
[2017-11-05] MEDS: cefTRIAXone\\ROCEPHIN 1 GM in Syringe 10 ML SLOW IVP SCH (20:40)
[2017-11-05] MEDS: Famotidine 20 MG TAB PO SCH (20:41)
[2017-11-05] MEDS: Azithromycin 500 MG in Sodium Chloride 0.9% 250 ML 250 ML IVPB SCH (21:24)
[2017-11-05] MEDS: Acetaminophen 325 MG TAB PO PRN (22:32)
[2017-11-06 05:39] LABS: #Lymphocytes 1.1 thou/uL (1.20-3.40); #Monocytes 0.5 thou/uL (0.11-0.59); %Basophils 0.3 % (0.0-1.0); %Eosinophils 0.3 % (0.0-10.0); %Lymphocytes 19.8 % (21.0-51.0); %Monocytes 9.4 % (0.0-10.0); %Neutrophils 70.2 % (42.0-75.0); Hemoglobin 12.4 g/dL (12.0-16.0); Mean Corpuscular HGB CONC 32.3 g/dL (32.0-36.0); Mean Corpuscular Hemoglobin 29.3 pg (27.0-31.0); Mean Corpuscular Volume 90.9 fl (81.0-99.0); Mean Platelet Volume 8.1 fL (7.4-10.4); Platelet Count 228 thou/uL (130-400); RBC Distribution Width 13.5 % (11.5-14.5); Red Blood Cell (RBC) Count 4.23 mill/uL (4.20-5.40); White Blood Cell (WBC) Count 5.7 thou/uL (4.8-10.8)
[2017-11-06 05:52] LABS: Anion Gap 14 mmol/L (10-20); BUN (Urea Nitrogen) 19 mg/dL (9.8-20.1); Calc. Creatinine Clearance 97 mL/min (70-130); Calcium 9.4 mg/dL (7.8-10.44); Carbon Dioxide 20 mmol/L (23-31); Cardiac Risk 2.5 (Less than 4.5); Chloride 108 mmol/L (98-107); Cholesterol 107 mg/dl (< 200 Desired); Estimated GFR-MDRD 58; Glucose 171 mg/dL (80-115); HDL Cholesterol 43 mg/dL (>60 Neg Risk); LDL Cholesterol, Calculated 36 mg/dL; Potassium 4.1 mmol/L (3.5-5.1); Sodium 138 mmol/L (136-145); Triglycerides 139 mg/dL (Less than 150)
[2017-11-06] MEDS: HumaLOG 300 UNITS/3 ML VIAL SC PRN ×3 (09:11→22:18)
[2017-11-06] MEDS: Pregabalin 50 MG CAP PO SCH ×3 (09:12→21:04)
[2017-11-06] MEDS: Enoxaparin Sodium 100 MG/ML SYRINGE SC SCH ×2 (09:12→21:25)
[2017-11-06] MEDS: FLONASE EA NARE SCH (09:12)
[2017-11-06] MEDS: ALPRAZolam 0.5 MG TAB PO PRN ×2 (09:12→22:15)
[2017-11-06] MEDS: rOPINIRole HCl 1 MG TAB PO SCH ×3 (09:12→22:00)
[2017-11-06] MEDS: Fluconazole 100 MG TAB PO SCH (09:13)
[2017-11-06] MEDS: Acetaminophen 325 MG TAB PO PRN (09:13)
[2017-11-06] MEDS: busPIRone HCl 10 MG TAB PO SCH (09:14)
[2017-11-06] MEDS: Multivitamin W/ Minerals 1 TAB PO SCH (09:14)
[2017-11-06] MEDS: Carvedilol 3.125 MG TAB PO SCH ×2 (09:14→18:14)
[2017-11-06] MEDS: Famotidine 20 MG TAB PO SCH ×2 (09:14→21:07)
[2017-11-06] MEDS: Aspirin 325 MG TAB PO SCH (09:14)
[2017-11-06] MEDS: Sodium Chloride 0.9% 1,000 ML IV SCH ×2 (09:15→22:29)
[2017-11-06] MEDS: Fluticasone Propionate Nasal Spray 16 gm Bottle NASAL SCH (09:15)
[2017-11-06] MEDS ORDERED: Albuterol Sulfate 2.5 mg/3 ml Neb NEB PRN (11:48)
[2017-11-06] MEDS: HYDROcodone/Acetaminophen 5/325 mg Tablet PO PRN ×2 (12:47→22:41)
--- NOTE | 2017-11-06 14:21 | PRG ---
DATE OF SERVICE: 11/06/2017 The patient feels better compared to yesterday. PHYSICAL EXAMINATION: VITAL SIGNS: Temperature is 97.5, pulse 72, respirations 20, O2 sat 100% on 2 liters, blood pressure 130/89. HEENT: Unremarkable. NECK: No JVD. LUNGS: Coarse rhonchi bilaterally, but better than yesterday. CARDIAC: S1 and S2 regular. ABDOMEN: Soft. EXTREMITIES: No edema. LABORATORY DATA: White blood cell count 5.7, hematocrit 30.5, platelet count 228. Sodium 138, potas sium 4.1, chloride 108, CO2 20, BUN 19, creatinine 0.9, glucose 171. ASSESSMENT: 1. Asthma with exacerbation. 2. Possible hypersensitivity pneumonitis versus atypical pneumonia. PLAN: Continue steroids, nebulization treatments and antibiotics. A hypersensitivity pneumonitis cheikh flores has been sent off. It will probably take about a week to come back. I have suggested that she e liminate chickens from her household. I will check on her tomorrow.
--- NOTE | 2017-11-06 16:11 | PDOC.PN ---
- Subjective Encounter Start Date: 11/06/17 Encounter Start Time: 10:00 Patient is seen today, alert and oriented. She continuos wheez and Cough heavily. Pt was glad She spoke to Dr. Wang, she feels her Checken is making her Wheeze. - Objective Resuscitation Status: Resuscitation Status FULL:Full Resuscitation MAR Reviewed: Yes Vital Signs & Weight: Vital Signs (12 hours) Temp Pulse Resp BP Pulse Ox 11/06/17 15:53 72 20 11/06/17 11:40 72 20 11/06/17 10:51 97.5 F L 62 18 130/89 100 11/06/17 09:10 96.8 F L 11/06/17 08:00 73 18 132/63 100 11/06/17 07:40 97.5 F L 62 18 100 11/06/17 06:24 98 11/06/17 06:16 76 24 H 98 Weight Weight 235 lb 8 oz I&O: 11/05/17 11/06/17 11/07/17 06:59 06:59 06:59 Intake Total 690 3465 Output Total 400 1900 Balance 290 1565 Result Diagrams: 11/06/17 05:16 11/06/17 05:16 Additional Labs: Accuchecks 11/06/17 11/06/17 11/05/17 10:31 05:40 21:14 POC Glucose 148 H 159 H 220 H 11/05/17 16:36 POC Glucose 151 H Radiology Reviewed by me: Yes EKG Reviewed by me: Yes Phys Exam - Physical Examination HEENT: PERRLA, moist MMs Neck: no nodes, no JVD Respiratory: wheezing present Worseing Wheezing and mild Rales noted bilaterally. Cardiovascular: RRR, no significant murmur Gastrointestinal: soft, non-tender Musculoskeletal: no edema, pulses present Neurological: non-focal, normal sensation Lymphatic: no nodes Psychiatric: normal affect Dx/Plan (1) Hypersensitivity pneumonitis Code(s): J67.9 - HYPERSENSITIVITY PNEUMONITIS DUE TO UNSPECIFIED ORGANIC DUST Status: Acute Comment: Pt is Wheeing pretty heavy, has Likely evidence of hypersistivity pneumoniatis from her livestock melita moya. Will change steroids to IV solumedrol 40mg q6. (2) Histoplasmosis Code(s): B39.9 - HISTOPLASMOSIS, UNSPECIFIED Status: Acute Comment: PT is SStarted on FLuconazole for histo. pending diagnsosi, Sputum collected. (3) Bilateral pneumonia Code(s): J18.9 - PNEUMONIA, UNSPECIFIED ORGANISM Status: Acute Comment: Cotninue with IV antibitoics, Stbale, WBC stable, No fever. (4) NSTEMI (non-ST elevated myocardial infarction) Code(s): I21.4 - NON-ST ELEVATION (NSTEMI) MYOCARDIAL INFARCTION Status: Acute Comment: Cardiology consulted, Suggested Echo for now. pt on Aspirin/ BB. (5) Acquired lymphedema Code(s): I89.0 - LYMPHEDEMA, NOT ELSEWHERE CLASSIFIED Status: Chronic (6) Diabetes type 2, controlled Code(s): E11.9 - TYPE 2 DIABETES MELLITUS WITHOUT COMPLICATIONS Status: Chronic Comment: Rohit Burk monitor with IV steroids. SSI. (7) Morbid obesity with BMI of 45.0-49.9, adult Code(s): E66.01 - MORBID (SEVERE) OBESITY DUE TO EXCESS CALORIES; Z68.42 - BODY MASS INDEX (BMI) 45.0-49.9, ADULT Status: Chronic - Plan cont current plan of care, continue antibiotics, PT/OT, social work job titles, respiratory therapy, incentive spirometry, out of bed/ambulate, DVT proph w/ lovenox * . - Discharge Day Encounter end time: 10:35 Review of Systems - Review of Systems Constitutional: weakness Eyes: negative: Pain, Vision Change, Conjunctivae Inflammation, Eyelid Inflammation, Redness, Other ENT: negative: Ear Pain, Ear Discharge, Nose Pain, Nose Discharge, Nose Congestion, Mouth Pain, Mouth Swelling, Throat Pain, Throat Swelling, Other Respiratory: Cough, Shortness of Breath, SOB with Excertion, Sputum, Wheezing Cardiovascular: negative: chest pain, palpitations, orthopnea, paroxysmal nocturnal dyspnea, edema, light headedness, other Gastrointestinal: negative: Nausea, Vomiting, Abdominal Pain, Diarrhea, Constipation, Melena, Hematochezia, Other Genitourinary: negative: Dysuria, Frequency, Incontinence, Hematuria, Retention , Other Musculoskeletal: negative: Neck Pain, Shoulder Pain, Arm Pain, Back Pain, Hand Pain, Leg Pain, Foot Pain, Other Skin: negative: Rash, Lesions, Faizan, Bruising, Other - Medications/Allergies Allergies/Adverse Reactions: Allergies Allergy/AdvReac Type Severity Reaction Status Date / Time latex Allergy Intermediate Rash Verified 07/01/17 23:44 adnesives Allergy blister Uncoded 07/01/17 23:44 Medications: Current Medications Acetaminophen (Tylenol) 650 mg PO Q4H PRN PRN Reason: Headache/Fever or Pain Last Admin: 11/06/17 09:13 Dose: 650 mg Hydrocodone Bitart/Acetaminophen ([place] 5/325) 1 tab PO Q4H PRN PRN Reason: breakthrough pain Last Admin: 11/06/17 12:47 Dose: 1 tab Albuterol Sulfate (Ventolin) 2.5 mg NEB Q2H PRN PRN Reason: Wheezing Albuterol/Ipratropium (Duoneb) 3 ml NEB [id number] [facility] Last Admin: 11/06/17 15:53 Dose: 3 ml Alprazolam (Xanax) 0.5 mg PO BIDPRN PRN PRN Reason: Anxiety Last Admin: 11/06/17 09:12 Dose: 0.5 mg Aspirin (Aspirin) 325 mg PO DAILY [facility] Last Admin: 11/06/17 09:14 Dose: 325 mg Atorvastatin Calcium (Lipitor) 40 mg PO HS [facility] Last Admin: 11/05/17 20:37 Dose: 40 mg Carvedilol (Coreg) 3.125 mg PO BID-WM [facility] Last Admin: 11/06/17 09:14 Dose: 3.125 mg Cyanocobalamin (Vitamin B-12) 1,000 mcg IM [id number] [facility] Dextrose/Water (Dextrose 50%) 25 gm SLOW IVP PRN PRN PRN Reason: Hypoglycemia Enoxaparin Sodium (Lovenox) 100 mg SC 0900,2100 [facility] Last Admin: 11/06/17 09:12 Dose: 100 mg Famotidine (Pepcid) 20 mg PO BID [facility] Last Admin: 11/06/17 09:14 Dose: 20 mg Fluconazole (Diflucan) 200 mg PO DAILY [facility] Last Admin: 11/06/17 09:13 Dose: 200 mg Fluticasone Propionate (Flonase Nasal Eads) 0 gm NASAL DAILY [facility] Last Admin: 11/06/17 09:15 Dose: Not Given Glucagon (Glucagon) 1 mg IM PRN PRN PRN Reason: Hypoglycemia Guaifenesin/Dextromethorphan (Robitussin Dm) 15 ml PO Q4H PRN PRN Reason: Cough Azithromycin 500 mg/ Sodium (Chloride) 250 mls @ 250 mls/hr IVPB Q24HR [facility] Last Admin: 11/05/17 21:24 Dose: 250 mls Ceftriaxone Sodium 1 gm/ (Syringe) 10 mls @ 120 mls/hr SLOW IVP Q24HR [facility] Last Admin: 11/05/17 20:40 Dose: 10 mls Dextrose/Water (D5w) 1,000 mls @ 0 mls/hr IV .Q0M PRN; As Directed PRN Reason: Hypoglycemia Sodium Chloride (Normal Saline 0.9%) 1,000 mls @ 70 mls/hr IV .[id number] [facility] Last Admin: 11/06/17 09:15 Dose: 1,000 mls Insulin Human Lispro (Humalog) 0 units SC .MODERATE SLIDING SC PRN PRN Reason: Moderate Correctional Scale Last Admin: 11/06/17 09:11 Dose: 2 unit Insulin Human Lispro (Humalog) 0 units SC .BEDTIME SLIDING SC PRN PRN Reason: Bedtime Correctional Scale Last Admin: 11/05/17 21:23 Dose: 2 unit Ipratropium [place] (Atrovent 0.03%) 0 ml EA NARE BID [facility] Last Admin: 11/05/17 20:39 Dose: 2 sprays Iron/Minerals/Multivitamins (Theragran M) 1 tab PO DAILY [facility] Last Admin: 11/06/17 09:14 Dose: 1 tab Methylprednisolone Sodium Succinate (Solu-Medrol) 40 mg IVP Q6HR [facility] Last Admin: 11/06/17 12:47 Dose: 40 mg Ondansetron HCl (Zofran Odt) 4 mg PO Q6H PRN PRN Reason: Nausea/Vomiting Flonase Nasal 2 (Puffs) 0 each EA NARE DAILY [facility] Last Admin: 11/06/17 09:12 Dose: 1 each Ipratropium [place] 0.03% Nasal Inhaler 30 Ml Bottle 0 each EA NARE BID [facility] Last Admin: 11/05/17 21:21 Dose: Not Given Pregabalin (Lyrica) 50 mg PO TID [facility] Last Admin: 11/06/17 15:27 Dose: 50 mg Ropinirole HCl (Requip) 1 mg PO TID [facility] Last Admin: 11/06/17 15:28 Dose: 1 mg Sodium Chloride (Flush - Normal Saline) 10 ml IVF Q12HR [facility] Last Admin: 11/06/17 09:15 Dose: Not Given Sodium Chloride (Flush - Normal Saline) 10 ml IVF PRN PRN PRN Reason: Saline Flush Last Admin: 11/05/17 21:24 Dose: 10 ml Trazodone HCl (Desyrel) 100 mg PO HS [facility]
[2017-11-06] MEDS: Ipratropium Bromide 0.03% Nasal Inhaler 30 ml Bottle EA NARE SCH ×2 (18:21)
--- NOTE | 2017-11-06 18:46 | PDOC.CTH ---
Cardiology Progress Note - Subjective Continues to feel SOB. Denies chest pain unless she coughs. - Objective Vital Signs Temp Pulse Resp BP Pulse Ox 11/06/17 16:00 97.7 F 74 18 143/75 H 97 11/06/17 15:53 72 20 11/06/17 11:40 72 20 11/06/17 10:51 97.5 F L 62 18 130/89 100 11/06/17 09:10 96.8 F L 11/06/17 08:00 73 18 132/63 100 11/06/17 07:40 97.5 F L 62 18 100 Weight 235 lb 8 oz 11/05/17 11/06/17 11/07/17 06:59 06:59 06:59 Intake Total 690 3465 Output Total 400 1900 Balance 290 1565 - Physical Examination General/Neuro: alert & oriented x3, NAD Neck: no JVD present Lungs: unlabored respirations Heart: RRR Abdomen: NT/ND Extremities: + edema B (1+) - Telemetry Telemetry Rhythm: NSR - Labs Result Diagrams: 11/06/17 05:16 11/06/17 05:16 Troponin/CKMB CK-MB (CK-2) 1.0 ng/mL (0-6.6) 11/04/17 20:17 Troponin I 1.854 ng/mL (< 0.028) H* 11/05/17 02:38 - Assessment/Plan 1. NSTEMI, demand ischemia likely. 2. Pneumonia 3. HTN PLAN: - Echo pending today. - Will follow.
[2017-11-06] MEDS: cefTRIAXone\\ROCEPHIN 1 GM in Syringe 10 ML SLOW IVP SCH (21:02)
[2017-11-06] MEDS: Atorvastatin Calcium 40 MG TAB PO SCH (21:03)
[2017-11-06] MEDS: traZODone HCl 50 MG TAB PO SCH (22:15)
[2017-11-06] MEDS: Azithromycin 500 MG in Sodium Chloride 0.9% 250 ML 250 ML IVPB SCH (22:15)
[2017-11-07] MEDS: HYDROcodone/Acetaminophen 5/325 mg Tablet PO PRN ×4 (06:13→23:15)
[2017-11-07] MEDS: HumaLOG 300 UNITS/3 ML VIAL SC PRN ×4 (10:02→21:02)
[2017-11-07] MEDS: Enoxaparin Sodium 100 MG/ML SYRINGE SC SCH ×2 (10:03→20:55)
[2017-11-07] MEDS: ALPRAZolam 0.5 MG TAB PO PRN (10:04)
[2017-11-07] MEDS: Aspirin 325 MG TAB PO SCH (10:04)
[2017-11-07] MEDS: Carvedilol 3.125 MG TAB PO SCH ×2 (10:04→17:57)
[2017-11-07] MEDS: Pregabalin 50 MG CAP PO SCH ×3 (10:04→20:53)
[2017-11-07] MEDS: Fluconazole 100 MG TAB PO SCH (10:04)
[2017-11-07] MEDS: rOPINIRole HCl 1 MG TAB PO SCH ×3 (10:04→21:56)
[2017-11-07] MEDS: Famotidine 20 MG TAB PO SCH ×2 (10:05→20:55)
[2017-11-07] MEDS: FLONASE EA NARE SCH (10:06)
[2017-11-07] MEDS: Multivitamin W/ Minerals 1 TAB PO SCH (10:06)
[2017-11-07] MEDS: Ipratropium Bromide 0.03% Nasal Inhaler 30 ml Bottle EA NARE SCH ×6 (10:06→21:20)
[2017-11-07] MEDS: Fluticasone Propionate Nasal Spray 16 gm Bottle NASAL SCH (10:09)
--- NOTE | 2017-11-07 12:11 | PDOC.PN ---
- Subjective Encounter Start Date: 11/07/17 Encounter Start Time: 12:05 Subjective: f/u for suspected atypical pneumonia with likely hypersensitivity -: pneumonitis on Zithromax, Diflucan and Rocephin. Also receiving -: Solumedrol - Objective Resuscitation Status: Resuscitation Status FULL:Full Resuscitation Vital Signs & Weight: Vital Signs (12 hours) Temp Pulse Resp BP BP Pulse Ox 11/07/17 11:09 72 20 11/07/17 07:30 97.5 F L 89 18 143/77 H 95 11/07/17 06:20 96 11/07/17 06:19 91 20 96 11/07/17 04:00 97.6 F 75 16 172/78 H 95 11/07/17 02:24 94 L Weight Weight 244 lb 9.6 oz I&O: 11/06/17 11/07/17 11/08/17 06:59 06:59 06:59 Intake Total 3465 3398 Output Total 1900 2200 Balance 1565 1198 Result Diagrams: 11/06/17 05:16 11/06/17 05:16 Additional Labs: Accuchecks 11/06/17 11/06/17 20:58 16:30 POC Glucose 344 H 212 H Microbiology 11/04/17 20:59 Stool - Pending Stool Occult Blood (VIVEK) - Final 11/04/17 19:58 Nasal swab Influenza Types A,B Direct EIA - Final 11/04/17 20:17 Venous blood - Left Arm Blood Culture - Preliminary NO GROWTH AT 48 HOURS 11/04/17 19:48 Venous blood - Right Hand Blood Culture - Preliminary NO GROWTH AT 48 HOURS Laboratory Tests 11/04/17 11/04/17 11/05/17 20:17 23:18 02:38 Troponin I 0.063 H 1.846 H* 1.854 H* Triglycerides Cholesterol LDL Cholesterol, Calc HDL Cholesterol 11/06/17 05:16 Troponin I Triglycerides 139 Cholesterol 107 LDL Cholesterol, Calc 36 HDL Cholesterol 43 Radiology Reviewed by me: Yes (2D echo - EF 60-65%, Grade II/III diast dysfxn, pleural effusion) EKG Reviewed by me: Yes (Tele - SR in 70's) Phys Exam - Physical Examination Constitutional: NAD smiling, responsive HEENT: PERRLA, oral pharynx no lesions Neck: no JVD, supple rhochi bilat, diminished in bases Cardiovascular: RRR Gastrointestinal: soft, non-tender, no distention, positive bowel sounds Musculoskeletal: no edema, pulses present Neurological: normal sensation, moves all 4 limbs Psychiatric: A&O x 3 Skin: normal turgor, cap refill <2 seconds Dx/Plan (1) Hypersensitivity pneumonitis Code(s): J67.9 - HYPERSENSITIVITY PNEUMONITIS DUE TO UNSPECIFIED ORGANIC DUST Status: Acute Comment: Suspected, continue Solumedrol 40mg IV q6h, Duonebs, hypersensitivity panel pending (2) Histoplasmosis Code(s): B39.9 - HISTOPLASMOSIS, UNSPECIFIED Status: Suspected Comment: Diflucan 200mg daily, pending final sputum analysis (3) NSTEMI (non-ST elevated myocardial infarction) Code(s): I21.4 - NON-ST ELEVATION (NSTEMI) MYOCARDIAL INFARCTION Status: Acute Comment: Cardiology consulted, continue ASA/Coreg/Lipitor/Lovenox (4) Diabetes type 2, controlled Code(s): E11.9 - TYPE 2 DIABETES MELLITUS WITHOUT COMPLICATIONS Status: Chronic Comment: Stable, monitor with IV steroids. SSI, restart Metformin (5) Morbid obesity with BMI of 45.0-49.9, adult Code(s): E66.01 - MORBID (SEVERE) OBESITY DUE TO EXCESS CALORIES; Z68.42 - BODY MASS INDEX (BMI) 45.0-49.9, ADULT Status: Chronic Comment: Dietary counseling - Plan continue antibiotics, manager social, respiratory therapy, out of bed/ambulate , DVT proph w/SCDs Stable overall -: Continue pulmonary supportive measures -: Continue Lovenox 100mg sc q12h -: OOB/ambulate -: Continue Solumedrol 40mg IV q6h * Likely home in 48h
--- NOTE | 2017-11-07 13:16 | PRG ---
DATE OF SERVICE: 11/07/2017 SUBJECTIVE: She is mildly better, but has not attempted to get up and get around very much. PHYSICAL EXAMINATION: VITAL SIGNS: Temperature is 97.5, pulse 89, respirations 18, O2 sat 95% on room air, blood pressure 143/77. HEENT: Unremarkable. NECK: No JVD. LUNGS: Rhonchi, but far less than 2 days ago. CARDIAC: S1 and S2 regular. ABDOMEN: Soft. EXTREMITIES: No edema. ASSESSMENT: Hypersensitivity pneumonitis versus atypical pneumonia. PLAN: I think she can be cycled over to oral antibiotic therapy. The main thing slowing the hospita l discharge is her severe deconditioning. I will ask PT to see her.
--- NOTE | 2017-11-07 17:28 | PDOC.CTH ---
Cardiology Progress Note - Subjective She is doing better every day. She had her echo and her LV function is normal. She does have a large pleural effusion on echo. - Objective Vital Signs Temp Pulse Resp BP BP Pulse Ox 11/07/17 15:16 76 20 11/07/17 15:07 97.5 F L 74 20 175/87 H 97 11/07/17 12:38 98.8 F 75 20 120/75 100 11/07/17 11:09 72 20 11/07/17 07:30 97.5 F L 76 20 143/77 H 95 11/07/17 06:20 96 11/07/17 06:19 91 20 96 Weight 244 lb 9.6 oz 11/06/17 11/07/17 11/08/17 06:59 06:59 06:59 Intake Total 3465 3398 Output Total 1900 2200 Balance 1565 1198 - Physical Examination General/Neuro: alert & oriented x3, NAD Neck: no JVD present Lungs: other: (Reduced breath sounds both bases.) Heart: RRR Abdomen: NT/ND Extremities: + edema B (1+) - Telemetry Telemetry Rhythm: NSR - Labs Result Diagrams: 11/06/17 05:16 11/06/17 05:16 Troponin/CKMB CK-MB (CK-2) 1.0 ng/mL (0-6.6) 11/04/17 20:17 Troponin I 1.854 ng/mL (< 0.028) H* 11/05/17 02:38 - Assessment/Plan 1. NSTEMI, demand ischemia likely. 2. Pneumonia 3. HTN 4. Pleural effusion PLAN: - IV lasix for effusions. - IV abx per primary team. - PT/OT
[2017-11-07] MEDS ORDERED: Furosemide 40 MG/4 ML VIAL SLOW IVP SCH (17:30)
[2017-11-07] MEDS: Cefdinir 300 MG CAP PO SCH (20:52)
[2017-11-07] MEDS: metFORMIN XR 500 MG TAB PO SCH (20:52)
[2017-11-07] MEDS: traZODone HCl 50 MG TAB PO SCH (20:52)
[2017-11-07] MEDS: Atorvastatin Calcium 40 MG TAB PO SCH (20:53)
[2017-11-07] MEDS: predniSONE 20 MG TAB PO SCH (20:54)
[2017-11-07] MEDS: Azithromycin 250 MG TAB PO SCH (20:55)
[2017-11-08 06:01] LABS: Hemoglobin 10.2 g/dL (12.0-16.0); Platelet Count 247 thou/uL (130-400)
[2017-11-08] MEDS: HumaLOG 300 UNITS/3 ML VIAL SC PRN ×2 (06:31→16:34)
[2017-11-08] MEDS: HYDROcodone/Acetaminophen 5/325 mg Tablet PO PRN ×3 (08:29→21:18)
[2017-11-08] MEDS: Carvedilol 3.125 MG TAB PO SCH ×2 (08:31→16:26)
[2017-11-08] MEDS: Aspirin 325 MG TAB PO SCH (08:31)
[2017-11-08] MEDS: Fluticasone Propionate Nasal Spray 16 gm Bottle NASAL SCH (08:32)
[2017-11-08] MEDS: Ipratropium Bromide 0.03% Nasal Inhaler 30 ml Bottle EA NARE SCH ×4 (08:32→22:52)
[2017-11-08] MEDS: Enoxaparin Sodium 100 MG/ML SYRINGE SC SCH ×2 (08:32→21:16)
[2017-11-08] MEDS: Famotidine 20 MG TAB PO SCH ×2 (08:32→21:17)
[2017-11-08] MEDS: Multivitamin W/ Minerals 1 TAB PO SCH (08:33)
[2017-11-08] MEDS: Lisinopril 10 MG TAB PO SCH (08:33)
[2017-11-08] MEDS: Fluconazole 100 MG TAB PO SCH (08:33)
[2017-11-08] MEDS: FLONASE EA NARE SCH (08:33)
[2017-11-08] MEDS: Pregabalin 50 MG CAP PO SCH ×3 (08:34→21:17)
[2017-11-08] MEDS: predniSONE 20 MG TAB PO SCH ×2 (08:34→21:17)
[2017-11-08] MEDS: rOPINIRole HCl 1 MG TAB PO SCH ×3 (08:35→21:29)
--- NOTE | 2017-11-08 09:54 | PRG ---
DATE OF SERVICE: 11/08/2017 The patient feels better and wants to go home. PHYSICAL EXAMINATION: VITAL SIGNS: Temperature is 99.0, pulse 87, blood pressure 171/72, O2 saturation 99%. HEENT: Unremarkable. NECK: No JVD. CHEST: Clear. CARDIAC: S1 and S2 regular. ABDOMEN: Soft. EXTREMITIES: No edema. No new labs were obtained today. ASSESSMENT: Hypersensitivity pneumonitis versus asthmatic bronchitis. PLAN: I think she is okay to go home. I would treat her with a total of 7 days of antibiotics. Thi s would include Omnicef and Diflucan. I would taper her steroids over 2 weeks. In terms of medicati ons for home, I have written a prescription for home nebulizer. She needs to be on albuterol/ipratro pium nebulization solution 3 times a day indefinitely. In terms of maintenance inhaler, she can use Symbicort 160/4.5 two puffs twice daily. I would like to see her in the office in 2-3 weeks.
--- NOTE | 2017-11-08 14:47 | PDOC.CTH ---
Cardiology Progress Note - Subjective Significantly improved today from respiratory perspective. No chest pain, tightness, pressure. Her biggest complaint is she feels she pulled something in her belly with so much coughing. - Objective Vital Signs Temp Pulse Resp BP BP Pulse Ox 11/08/17 14:36 86 20 96 11/08/17 11:35 97.5 F L 78 16 142/65 H 96 11/08/17 10:32 83 20 94 L 11/08/17 09:06 99.0 F 71 20 171/72 H 99 11/08/17 08:44 97.6 F 80 18 98 11/08/17 08:24 97.6 F 80 18 167/72 H 99 11/08/17 08:09 95 11/08/17 08:06 82 20 95 11/08/17 04:00 98 F 83 20 143/66 H 96 Weight 244 lb 9.6 oz 11/07/17 11/08/17 11/09/17 06:59 06:59 06:59 Intake Total 3398 510 Output Total 2200 600 Balance 1198 -90 - Physical Examination General/Neuro: alert & oriented x3, NAD Neck: no JVD present Lungs: CTA, unlabored respirations Heart: RRR Abdomen: NT/ND Extremities: + edema B (1+) - Telemetry Telemetry Rhythm: NSR - Labs Result Diagrams: 11/08/17 05:50 11/08/17 05:50 Troponin/CKMB CK-MB (CK-2) 1.0 ng/mL (0-6.6) 11/04/17 20:17 Troponin I 1.854 ng/mL (< 0.028) H* 11/05/17 02:38 - Assessment/Plan 1. NSTEMI, demand ischemia likely. 2. Pneumonia 3. HTN 4. Pleural effusion 5. History of bariatric surgery. PLAN: - Lasix to PRN now. - IV abx per primary team. - PT/OT
--- NOTE | 2017-11-08 17:53 | PDOC.PN ---
- Subjective Encounter Start Date: 11/08/17 Encounter Start Time: 17:40 Subjective: f/u for cough, hypersensitivity pneumonitis and ? Histoplasmosis. -: Tx with Diflucan and Omnicef. Feeling better overall and more mobile -: with RW. - Objective Resuscitation Status: Resuscitation Status FULL:Full Resuscitation MAR Reviewed: Yes Vital Signs & Weight: Vital Signs (12 hours) Temp Pulse Resp BP BP Pulse Ox 11/08/17 16:21 97.5 F L 92 125/60 96 11/08/17 14:36 86 20 96 11/08/17 11:35 97.5 F L 78 16 142/65 H 96 11/08/17 10:32 83 20 94 L 11/08/17 09:06 99.0 F 71 20 171/72 H 99 11/08/17 08:44 97.6 F 80 18 98 11/08/17 08:24 97.6 F 80 18 167/72 H 99 11/08/17 08:09 95 11/08/17 08:06 82 20 95 Weight Weight 244 lb 9.6 oz I&O: 11/07/17 11/08/17 11/09/17 06:59 06:59 06:59 Intake Total 3398 510 Output Total 2200 600 Balance 1198 -90 Result Diagrams: 11/08/17 05:50 11/08/17 05:50 Additional Labs: Accuchecks 11/08/17 11/08/17 11/07/17 16:33 10:59 16:25 POC Glucose 297 H 170 H 159 H 11/07/17 11/07/17 11:14 05:37 POC Glucose 286 H 273 H Radiology Reviewed by me: Yes (2D echo - EF 60-65%, Grade II/III diast dysfxn) EKG Reviewed by me: Yes (Tele - SR ) Phys Exam - Physical Examination Constitutional: NAD HEENT: PERRLA, oral pharynx no lesions Neck: no JVD, supple few basilar coarse rhonchi Cardiovascular: RRR Gastrointestinal: soft, non-tender, no distention, positive bowel sounds R>LLE Musculoskeletal: pulses present, edema present Neurological: normal sensation, moves all 4 limbs Psychiatric: A&O x 3 Skin: normal turgor, cap refill <2 seconds Dx/Plan (1) Hypersensitivity pneumonitis Code(s): J67.9 - HYPERSENSITIVITY PNEUMONITIS DUE TO UNSPECIFIED ORGANIC DUST Status: Acute Comment: Suspected, continue Prednisone 40mg BID, Duonebs, hypersensitivity panel pending, continue Omnicef 600mg and Zithromax 250mg daily (2) Histoplasmosis Code(s): B39.9 - HISTOPLASMOSIS, UNSPECIFIED Status: Suspected Comment: Diflucan 200mg daily, pending final sputum analysis (3) NSTEMI (non-ST elevated myocardial infarction) Code(s): I21.4 - NON-ST ELEVATION (NSTEMI) MYOCARDIAL INFARCTION Status: Acute Comment: Cardiology consulted, continue ASA/Coreg/Lipitor/Lovenox (4) Diabetes type 2, controlled Code(s): E11.9 - TYPE 2 DIABETES MELLITUS WITHOUT COMPLICATIONS Status: Chronic Comment: Stable, SSI, restart Metformin (5) Morbid obesity with BMI of 45.0-49.9, adult Code(s): E66.01 - MORBID (SEVERE) OBESITY DUE TO EXCESS CALORIES; Z68.42 - BODY MASS INDEX (BMI) 45.0-49.9, ADULT Status: Chronic Comment: Dietary counseling - Plan continue antibiotics, PT/OT, social work case manager, respiratory therapy, out of bed/ ambulate Stable overall -: Continue Prednisone 40mg BID -: Duonebs q4h -: Continue Omnicef 600mg daily -: Continue Zithromax 250mg daily * Plan for d/c home in am * Likely will need HH with PT on d/c
[2017-11-08] MEDS: Atorvastatin Calcium 40 MG TAB PO SCH (21:16)
[2017-11-08] MEDS: Cefdinir 300 MG CAP PO SCH (21:16)
[2017-11-08] MEDS: Azithromycin 250 MG TAB PO SCH (21:16)
[2017-11-08] MEDS: traZODone HCl 50 MG TAB PO SCH (21:18)
[2017-11-08] MEDS: metFORMIN XR 500 MG TAB PO SCH (21:19)
[2017-11-09] MEDS: ALPRAZolam 0.5 MG TAB PO PRN (04:12)
[2017-11-09] MEDS: HumaLOG 300 UNITS/3 ML VIAL SC PRN ×2 (06:28→17:19)
--- NOTE | 2017-11-09 08:07 | PDOC.PN ---
- Subjective Encounter Start Date: 11/09/17 Encounter Start Time: 07:45 Subjective: f/u after Code Cruz called for a fall this am. Pt was attempting to stand -: from the chair in her room slipping and falling against the wall hitting -: her R head. No LOC. Hx of falls at home. No unilateral sx. - Objective Resuscitation Status: Resuscitation Status FULL:Full Resuscitation MAR Reviewed: Yes Vital Signs & Weight: Vital Signs (12 hours) Temp Pulse Resp BP Pulse Ox 11/09/17 04:18 95 11/09/17 04:00 97.4 F L 95 12 89/55 L 92 L 11/09/17 03:16 82 16 94 L 11/08/17 22:21 84 16 95 Weight Weight 244 lb 9.6 oz I&O: 11/08/17 11/09/17 11/10/17 06:59 06:59 06:59 Intake Total 510 720 Output Total 600 300 Balance -90 420 Result Diagrams: 11/08/17 05:50 11/08/17 05:50 Additional Labs: Accuchecks 11/09/17 11/09/17 11/08/17 07:18 05:59 21:07 POC Glucose 326 H 361 H 231 H 11/08/17 11/08/17 11/08/17 16:33 10:59 06:10 POC Glucose 297 H 170 H 252 H 11/07/17 20:47 POC Glucose 346 H Radiology Reviewed by me: Yes (CT brain - pending) EKG Reviewed by me: Yes (Tele - SR) Phys Exam - Physical Examination Constitutional: NAD alert, talkative scalp atraumatic HEENT: PERRLA, oral pharynx no lesions Neck: no JVD, supple Respiratory: no wheezing, clear to auscultation bilateral Cardiovascular: RRR Gastrointestinal: soft, non-tender, no distention, positive bowel sounds mild edema noted Musculoskeletal: pulses present Neurological: normal sensation, moves all 4 limbs Psychiatric: A&O x 3 Skin: normal turgor, cap refill <2 seconds Dx/Plan (1) Hypersensitivity pneumonitis Code(s): J67.9 - HYPERSENSITIVITY PNEUMONITIS DUE TO UNSPECIFIED ORGANIC DUST Status: Acute Comment: Suspected, continue Prednisone 40mg BID, Duonebs, hypersensitivity panel pending, continue Omnicef 600mg and Zithromax 250mg daily (2) Histoplasmosis Code(s): B39.9 - HISTOPLASMOSIS, UNSPECIFIED Status: Suspected Comment: Diflucan 200mg daily, pending final sputum analysis (3) NSTEMI (non-ST elevated myocardial infarction) Code(s): I21.4 - NON-ST ELEVATION (NSTEMI) MYOCARDIAL INFARCTION Status: Acute Comment: Cardiology consulted, continue ASA/Coreg/Lipitor, d/c Lovenox (4) Fall Code(s): W19.XXXA - UNSPECIFIED FALL, INITIAL ENCOUNTER Status: Acute Comment: mild CHI, check CT brain given pt on Lovenox, fall precautions, RW with assist for mobilization (5) Diabetes type 2, controlled Code(s): E11.9 - TYPE 2 DIABETES MELLITUS WITHOUT COMPLICATIONS Status: Chronic Comment: Stable, SSI, restart Metformin (6) Morbid obesity with BMI of 45.0-49.9, adult Code(s): E66.01 - MORBID (SEVERE) OBESITY DUE TO EXCESS CALORIES; Z68.42 - BODY MASS INDEX (BMI) 45.0-49.9, ADULT Status: Chronic Comment: Dietary counseling - Plan continue antibiotics, PT/OT, social media intern, respiratory therapy, DVT proph w/ SCDs Stable currently -: CT brain s/p mech fall and CHI -: D/C Lovenox -: PT for mobilization, RW with assist -: Limit psychotropic/sedating medications * Lab: CBC * Likely home later today
[2017-11-09 08:22] LABS: Mean Corpuscular HGB CONC 31.8 g/dL (32.0-36.0); Mean Corpuscular Hemoglobin 28.8 pg (27.0-31.0); Mean Corpuscular Volume 90.5 fl (81.0-99.0); Mean Platelet Volume 8.6 fL (7.4-10.4); Platelet Count 280 thou/uL (130-400); RBC Distribution Width 13.4 % (11.5-14.5); Red Blood Cell (RBC) Count 2.78 mill/uL (4.20-5.40); White Blood Cell (WBC) Count 18.8 thou/uL (4.8-10.8)
[2017-11-09 08:52] LABS: Band 2 % (5-11); Hypochromia SLIGHT = 6-15 cells (100X) (0-5/hpf); Lymphocytes 7 % (21-51); MDiff Complete? YES; Metamyelocyte 1 % (0-0); Monocytes 1 % (0-10); Neutrophil 89 % (42-75)
[2017-11-09] MEDS: FLONASE EA NARE SCH (10:29)
[2017-11-09] MEDS: Aspirin 325 MG TAB PO SCH (10:30)
[2017-11-09] MEDS: predniSONE 20 MG TAB PO SCH ×2 (10:30→21:20)
[2017-11-09] MEDS: Famotidine 20 MG TAB PO SCH ×2 (10:30→21:19)
[2017-11-09] MEDS: Fluconazole 100 MG TAB PO SCH (10:31)
[2017-11-09] MEDS ORDERED: Sodium Chloride 0.9% 500 ML IVPB SCH (10:45)
--- NOTE | 2017-11-09 12:11 | PRG ---
DATE OF SERVICE: 11/09/2017 SUBJECTIVE: The patient is doing reasonably well following this morning. OBJECTIVE: VITAL SIGNS: Temperature is 97.4, pulse 95, respirations 12, O2 sat 95%. HEENT: Unremarkable. NECK: No JVD. LUNGS: Clear without wheezing or rhonchi. CARDIAC: S1 and S2 regular. ABDOMEN: Soft. EXTREMITIES: No edema. ASSESSMENT: Hypersensitivity pneumonitis versus asthmatic bronchitis - improved on steroids, nebuliz ation treatments, and avoiding exposure to chickens. PLAN: See my note from yesterday. Seven days of antibiotics, taper steroids over 2 weeks, nebulizat ion treatments three times daily as needed and Symbicort 160/4.5 two puffs twice daily. I need to se e her in 2-3 weeks in my office.
--- NOTE | 2017-11-09 12:28 | CT ---
CT BRAIN NONCONTRAST: HISTORY: A 67-year-old female status post head trauma due to fall from dizziness. The patient is on anticoagu lation medication. FINDINGS: There is no midline shift or any other mass effect. There is no evidence of acute intracranial hemor rhage, large cortical infarct, obstructive hydrocephalus, or extraaxial fluid collection. The calvar ium is intact. There are small air fluid levels in the dependent portions of the bilateral maxillary sinuses, with relatively high density suggesting the possibility of blood. IMPRESSION: 1. No acute intracranial findings. 2. Small bilateral air fluid levels in the maxillary sinuses which may or may not represent blood, g iven the history of trauma. opal [] POS: KARENA
[2017-11-09] MEDS: Carvedilol 3.125 MG TAB PO SCH ×2 (13:17→17:26)
[2017-11-09] MEDS: Fluticasone Propionate Nasal Spray 16 gm Bottle NASAL SCH (13:18)
[2017-11-09] MEDS: Lisinopril 10 MG TAB PO SCH (13:18)
[2017-11-09] MEDS: Ipratropium Bromide 0.03% Nasal Inhaler 30 ml Bottle EA NARE SCH ×4 (13:18→21:28)
[2017-11-09] MEDS: Multivitamin W/ Minerals 1 TAB PO SCH (13:18)
[2017-11-09] MEDS: rOPINIRole HCl 1 MG TAB PO SCH ×3 (13:19→21:20)
[2017-11-09] MEDS: Pregabalin 50 MG CAP PO SCH ×3 (13:19→21:19)
--- NOTE | 2017-11-09 15:44 | PDOC.EVN ---
Event Note - Event Note Event Note: Pt noted with hypotension earlier given NS 500ml IV with systolics correcting to 120's. CT brain negative for acute process after fall in the early am with mild closed head injury on Lovenox. Continue to observe overnight and plan on d/c home in am 11/10/17.
--- NOTE | 2017-11-09 17:37 | PDOC.CTH ---
Cardiology Progress Note - Subjective She had a fall this morning. Her breathing is better. Continues to have abdominal pain. - Objective Vital Signs Temp Pulse Pulse Pulse Resp Resp Resp 11/09/17 17:27 11/09/17 16:09 97.9 F 75 16 11/09/17 12:14 97.5 F L 87 16 11/09/17 10:38 84 16 11/09/17 09:55 97.5 F L 87 16 11/09/17 07:10 88 84 18 20 BP BP BP BP Pulse Ox Pulse Ox Pulse Ox 11/09/17 17:27 127/60 11/09/17 16:09 106/51 L 97 11/09/17 12:14 122/67 98 11/09/17 10:38 11/09/17 09:55 89/50 L 98 11/09/17 07:10 90/53 L 87/54 L 99 100 Weight 244 lb 9.6 oz 11/08/17 11/09/17 11/10/17 06:59 06:59 06:59 Intake Total 510 720 Output Total 600 300 Balance -90 420 - Physical Examination General/Neuro: alert & oriented x3, NAD Neck: no JVD present Lungs: CTA, unlabored respirations Heart: RRR Abdomen: other: (Mild tenderness on palpation. No rebound or guarding. ) Extremities: + edema B (1+) - Telemetry Telemetry Rhythm: NSR - Labs Result Diagrams: 11/09/17 08:13 11/08/17 05:50 Troponin/CKMB CK-MB (CK-2) 1.0 ng/mL (0-6.6) 11/04/17 20:17 Troponin I 1.854 ng/mL (< 0.028) H* 11/05/17 02:38 - Assessment/Plan 1. NSTEMI, demand ischemia likely. 2. Pneumonia 3. HTN 4. Pleural effusion 5. History of bariatric surgery. PLAN: - Lasix PRN. - IV abx per primary team. - PT/OT - Will sign off. please call with ay questions.
[2017-11-09] MEDS: Azithromycin 250 MG TAB PO SCH (21:20)
[2017-11-09] MEDS: Atorvastatin Calcium 40 MG TAB PO SCH (21:20)
[2017-11-09] MEDS: metFORMIN XR 500 MG TAB PO SCH (21:20)
[2017-11-09] MEDS: Cefdinir 300 MG CAP PO SCH (21:20)
[2017-11-09] MEDS: traZODone HCl 50 MG TAB PO SCH (21:23)
[2017-11-10] MEDS: HYDROcodone/Acetaminophen 5/325 mg Tablet PO PRN ×2 (00:47→18:31)
[2017-11-10 05:32] LABS: Hemoglobin 6.3 g/dL (12.0-16.0); Platelet Count 253 thou/uL (130-400)
[2017-11-10] MEDS: HumaLOG 300 UNITS/3 ML VIAL SC PRN ×4 (07:30→21:29)
[2017-11-10 08:19] LABS: Hemoglobin 6.9 g/dL (12.0-16.0)
--- NOTE | 2017-11-10 08:45 | PRG ---
DATE OF SERVICE: 11/10/2017 SUBJECTIVE: The patient is doing reasonably well. She complains of weakness. PHYSICAL EXAMINATION: VITAL SIGNS: Temperature 97.9, pulse 99, respiration 16, O2 sat 94%, blood pressure 115/58. HEENT: Unremarkable. NECK: No JVD. CHEST: Clear with distant breath sounds. CARDIAC: S1 and S2 regular. ABDOMEN: Soft. EXTREMITIES: No edema. LABORATORY DATA: Her hemoglobin 6.9, hematocrit 20.9, not completely sure why she dropped her hemogl obin and hematocrit. ASSESSMENT: 1. Gross decrease in hemoglobin, which may be secondary to some type of intraoral bleeding. 2. Hypersensitivity, pneumonitis versus asthmatic bronchitis. RECOMMENDATIONS: From pulmonary issue, she is stable. She is continuing prednisone and antibiotics. I will leave the issue transfusion upto the hospitalist team.
[2017-11-10] MEDS: FLONASE EA NARE SCH (09:34)
[2017-11-10] MEDS: Famotidine 20 MG TAB PO SCH ×2 (09:34→21:45)
[2017-11-10] MEDS: Pregabalin 50 MG CAP PO SCH ×3 (09:34→21:26)
[2017-11-10] MEDS: Carvedilol 3.125 MG TAB PO SCH ×2 (09:35→18:31)
[2017-11-10] MEDS: Multivitamin W/ Minerals 1 TAB PO SCH (09:35)
[2017-11-10] MEDS: Aspirin 325 MG TAB PO SCH (09:35)
[2017-11-10] MEDS: predniSONE 20 MG TAB PO SCH ×2 (09:36→21:27)
[2017-11-10] MEDS: Lisinopril 10 MG TAB PO SCH (09:36)
[2017-11-10] MEDS: Fluconazole 100 MG TAB PO SCH (09:36)
[2017-11-10] MEDS: rOPINIRole HCl 1 MG TAB PO SCH ×3 (09:37→21:26)
[2017-11-10] MEDS ORDERED: diphenhydrAMINE 25 MG CAP PO SCH (10:45)
[2017-11-10] MEDS ORDERED: Acetaminophen 325 MG TAB PO SCH (10:45)
[2017-11-10] MEDS ORDERED: Furosemide 20 MG/2 ML VIAL IVP SCH (10:45)
[2017-11-10] MEDS ORDERED: Iopamidol 370 76% 50 ML VIAL FS ONE (12:52)
[2017-11-10] MEDS: Fluticasone Propionate Nasal Spray 16 gm Bottle NASAL SCH (14:42)
--- NOTE | 2017-11-10 17:01 | PDOC.PN ---
- Subjective Encounter Start Date: 11/10/17 Encounter Start Time: 11:10 -: old records requested/rev Pt seen and examined, chart reviewed in its entirety, this is my first visit with this patient. PT complaining of abdominal pain, worse with movement, felt like a tear when she was coughing. NO F/C, no N/V/D/C. Cardiology had cleared for D/C, Pulm cleared for discharge. H/H 6.3 this AM, repeat at 6.9. No CP, no SOB 10 point ROS performed and neg for all systems except as per HPI - Objective Resuscitation Status: Resuscitation Status FULL:Full Resuscitation MAR Reviewed: Yes Vital Signs & Weight: Vital Signs (12 hours) Temp Pulse Pulse Resp BP BP BP 11/10/17 14:27 70 16 11/10/17 13:16 96.1 F L 75 16 110/52 L 11/10/17 10:51 84 16 11/10/17 09:36 102/94 H 11/10/17 08:00 96.4 F L 97 16 102/55 L 11/10/17 07:06 100 14 Pulse Ox 11/10/17 14:27 11/10/17 13:16 11/10/17 10:51 11/10/17 09:36 11/10/17 08:00 96 11/10/17 07:06 Weight Weight 244 lb 9.6 oz I&O: 11/09/17 11/10/17 11/11/17 06:59 06:59 06:59 Intake Total 720 1220 0 Output Total 300 40 Balance 420 1180 0 Result Diagrams: 11/10/17 07:56 11/10/17 04:45 Additional Labs: Accuchecks 11/10/17 11/10/17 11/09/17 10:53 06:19 17:08 POC Glucose 188 H 352 H 315 H Radiology Reviewed by me: Yes EKG Reviewed by me: Yes Phys Exam - Physical Examination Constitutional: NAD HEENT: PERRLA, moist MMs, sclera anicteric, oral pharynx no lesions Neck: no nodes, no JVD, supple, full ROM Respiratory: no wheezing, no rales, no rhonchi, clear to auscultation bilateral Cardiovascular: RRR, no significant murmur, no rub Gastrointestinal: soft, no distention, positive bowel sounds diffusely tender. small periumbilical and ventral defect Musculoskeletal: pulses present, edema present Neurological: non-focal, normal sensation, moves all 4 limbs Lymphatic: no nodes Psychiatric: normal affect, A&O x 3 Skin: no rash, normal turgor, cap refill <2 seconds Dx/Plan (1) Acute blood loss anemia Code(s): D62 - ACUTE POSTHEMORRHAGIC ANEMIA Status: Acute Comment: hgb trending down, no clear source. abd tender. will get CT A/P. Lovenox D/Cd . AM H/H. transfuse 1 unit PRBC for now (2) Hypersensitivity pneumonitis Code(s): J67.9 - HYPERSENSITIVITY PNEUMONITIS DUE TO UNSPECIFIED ORGANIC DUST Status: Acute Comment: Suspected, continue Prednisone 40mg BID, Duonebs, hypersensitivity panel pending, continue Omnicef 600mg and Zithromax 250mg daily , on Fluc, whoch is not good coverage fdor histo, would need itraconazole. Will check urine histo Ag and serum histo ab (3) NSTEMI (non-ST elevated myocardial infarction) Code(s): I21.4 - NON-ST ELEVATION (NSTEMI) MYOCARDIAL INFARCTION Status: Resolved Comment: Cardiology consulted, continue ASA/Coreg/Lipitor, d/c Lovenox. Cards S/Od, okayed for D/C (4) Histoplasmosis Code(s): B39.9 - HISTOPLASMOSIS, UNSPECIFIED Status: Suspected Comment: Diflucan 200mg daily, pending final sputum analysis. FLuc not great, would need itra with good levels. will check ur Ag and serum Abs (5) Cellulitis of right leg Code(s): L03.115 - CELLULITIS OF RIGHT LOWER LIMB Status: Resolved (6) UTI (urinary tract infection) Status: Acute Qualifiers: Urinary tract infection type: acute cystitis Hematuria presence: with hematuria Qualified Code(s): N30.01 - Acute cystitis with hematuria (7) Acquired lymphedema Code(s): I89.0 - LYMPHEDEMA, NOT ELSEWHERE CLASSIFIED Status: Chronic (8) Diabetes type 2, controlled Code(s): E11.9 - TYPE 2 DIABETES MELLITUS WITHOUT COMPLICATIONS Status: Chronic Qualifiers: Diabetes mellitus termination clerk insulin use: unspecified [facility] insulin use status Diabetes mellitus complication status: without complication Qualified Code(s): E11.9 - Type 2 diabetes mellitus without complications Comment: Stable, SSI, restart Metformin (9) Morbid obesity with BMI of 45.0-49.9, adult Code(s): E66.01 - MORBID (SEVERE) OBESITY DUE TO EXCESS CALORIES; Z68.42 - BODY MASS INDEX (BMI) 45.0-49.9, ADULT Status: Chronic Comment: Dietary counseling (10) Obstructive sleep apnea Code(s): G47.33 - OBSTRUCTIVE SLEEP APNEA (ADULT) (PEDIATRIC) Status: Chronic (11) Restless leg syndrome Status: Chronic (12) Encephalopathy acute Code(s): G93.40 - ENCEPHALOPATHY, UNSPECIFIED Status: Resolved (13) Lactic acidosis Code(s): E87.2 - ACIDOSIS Status: Resolved (14) Sepsis with acute organ dysfunction Code(s): A41.9 - SEPSIS, UNSPECIFIED ORGANISM; R65.20 - SEVERE SEPSIS WITHOUT SEPTIC SHOCK Status: Resolved - Plan cont current plan of care, PT/OT, out of bed/ambulate * .
--- NOTE | 2017-11-10 17:24 | PDOC.CTH ---
Cardiology Progress Note - Subjective She had a drop in her Hgb and a CT abdomen was done that showed a hematoma. Likely form coughing. - Objective Vital Signs Temp Pulse Pulse Resp BP BP BP 11/10/17 16:20 97.1 F L 89 16 129/62 11/10/17 14:27 70 16 11/10/17 13:35 97.0 F L 73 16 105/53 L 11/10/17 13:16 96.1 F L 75 16 110/52 L 11/10/17 10:51 84 16 11/10/17 09:36 102/94 H 11/10/17 08:00 96.4 F L 97 16 102/55 L 11/10/17 07:06 100 14 Pulse Ox 11/10/17 16:20 11/10/17 14:27 11/10/17 13:35 11/10/17 13:16 11/10/17 10:51 11/10/17 09:36 11/10/17 08:00 96 11/10/17 07:06 Weight 244 lb 9.6 oz 11/09/17 11/10/17 11/11/17 06:59 06:59 06:59 Intake Total 720 1220 350 Output Total 300 40 Balance 420 1180 350 - Physical Examination General/Neuro: alert & oriented x3, NAD Neck: no JVD present Lungs: CTA, unlabored respirations Heart: RRR Abdomen: soft Extremities: + edema B (1+) - Telemetry Telemetry Rhythm: NSR - Labs Result Diagrams: 11/10/17 07:56 11/10/17 04:45 Troponin/CKMB CK-MB (CK-2) 1.0 ng/mL (0-6.6) 11/04/17 20:17 Troponin I 1.854 ng/mL (< 0.028) H* 11/05/17 02:38 - Assessment/Plan 1. NSTEMI, demand ischemia likely. 2. Pneumonia 3. HTN 4. Pleural effusion 5. History of bariatric surgery. 6. Intra abdominal hematoma. PLAN: - Lasix PRN. - IV abx per primary team. - PT/OT - Try to keep Hgb above 8 ideally above 10.
--- NOTE | 2017-11-10 18:46 | CT ---
CT ABDOMEN NONCONTRAST CT PELVIS NONCONTRAST: Date: 11/10/17 Time: 4:28 p.m. HISTORY: 67-year-old female with abdominal pain, and rapidly falling hemoglobin. GFR of 30. Rule out spontaneous intra-abdominal hemorrhage. Dr. Plaza discussed the findings by telephone with Dr. Johnson at 4:49 p.m. on 11/10/17. COMPARISON: None. TECHNIQUE: PO Isovue administered. No IV contrast. FINDINGS: There is a Bajwa catheter within a collapsed urinary bladder. There is a large, approximately 12.5 x 13 x 9 cm hematoma surrounding the collapsed urinary bladder, within the anterior aspect of the pelvi c cavity. It is probably extraperitoneal. There is an approximately 8.5 x 5.5 x 10 cm hematoma of the right rectus abdominis muscle inferiorly. There are multiple hematomas of the contralateral left rec tus abdominis muscle. The more inferior one is approximately 8 x 5 x 7.5 cm. There are additional lef t rectus abdominis muscle hematomas at the mid and upper levels of the abdomen. There is a small amount of free fluid, probably blood, along bilateral paracolic gutters. There is sm all amount of fluid, probably blood, circumferentially surrounding the perirectal space and along the presacral space. There is edema throughout the subcutaneous fat circumferentially surrounding the ab dominal cavity and pelvic cavity, consistent with anasarca. There is mild right hydronephrosis. Moder ate dilation of a segment of the right mid ureter, presumably due to extrinsic compression by the large intrapelvic hem atoma. No renal calculus or ureteral calculus identified. No small bowel dilation. Cholecystectomy cl ips. Mild, faint, patchy densities in the bilateral lower lobes, nonspecific. At least a few right lo wer lobe pulmonary nodules. No abdominal aortic aneurysm. Within the limitations of a noncontrast sca n, no gross abnormality is identified involving the liver, spleen, or adrenals. The pancreas is parti ally fatty replaced. Small sliding hiatal hernia. No small bowel dilation. Normal, elongated retrocec al appendix. No pleural effusion. IMPRESSION: 1. Large anterior intrapelvic, probably extraperitoneal, spontaneous hematoma, surrounding the c ollapsed urinary bladder (bladder is empty with Bajwa catheter within it). 2. Bilateral large spontaneous hematomas of the rectus abdominis muscles, left much more extensi ve than the right. 3. Anasarca. 4. Mild right hydroureteronephrosis, probably due to extrinsic compression of the right ureter b y the intrapelvic hematoma. 5. Nonspecific mild, faint, patchy pulmonary densities at the bilateral lower lobes. 6. In addition, there are at least a few noncalcified right lower lobe pulmonary nodules, which are incompletely evaluated. A dedicated chest CT is recommended. Code CR POS: KARENA
[2017-11-10] MEDS: traZODone HCl 50 MG TAB PO SCH (21:26)
[2017-11-10] MEDS: metFORMIN XR 500 MG TAB PO SCH (21:27)
[2017-11-10] MEDS: Ipratropium Bromide 0.03% Nasal Inhaler 30 ml Bottle EA NARE SCH ×2 (21:34)
[2017-11-10] MEDS: Cefdinir 300 MG CAP PO SCH (21:45)
[2017-11-10] MEDS: Atorvastatin Calcium 40 MG TAB PO SCH (21:45)
[2017-11-10] MEDS: Azithromycin 250 MG TAB PO SCH (21:45)
[2017-11-11 05:54] LABS: #Lymphocytes 0.8 thou/uL (1.20-3.40); #Monocytes 0.5 thou/uL (0.11-0.59); #Neutrophils 14.4 thou/uL (1.40-6.50); %Basophils 0.1 % (0.0-1.0); %Eosinophils 0.3 % (0.0-10.0); %Lymphocytes 5.3 % (21.0-51.0); %Monocytes 3.3 % (0.0-10.0); Hemoglobin 6.7 g/dL (12.0-16.0); Mean Corpuscular HGB CONC 33.5 g/dL (32.0-36.0); Mean Corpuscular Hemoglobin 29.5 pg (27.0-31.0); Mean Platelet Volume 8.3 fL (7.4-10.4); Platelet Count 245 thou/uL (130-400); RBC Distribution Width 14.4 % (11.5-14.5); Red Blood Cell (RBC) Count 2.26 mill/uL (4.20-5.40); White Blood Cell (WBC) Count 15.8 thou/uL (4.8-10.8)
[2017-11-11 06:14] LABS: Anion Gap 13 mmol/L (10-20); BUN (Urea Nitrogen) 53 mg/dL (9.8-20.1); Calc. Creatinine Clearance 60 mL/min (70-130); Calcium 8.3 mg/dL (7.8-10.44); Carbon Dioxide 23 mmol/L (23-31); Chloride 103 mmol/L (98-107); Estimated GFR-MDRD 32; Glucose 228 mg/dL (80-115); Potassium 5.3 mmol/L (3.5-5.1); Sodium 134 mmol/L (136-145)
[2017-11-11 08:37] VITALS: BMI 42.5
[2017-11-11] MEDS ORDERED: Furosemide 40 MG/4 ML VIAL SLOW IVP SCH (09:30)
[2017-11-11] MEDS: Fluconazole 100 MG TAB PO SCH (09:57)
[2017-11-11] MEDS: Lisinopril 10 MG TAB PO SCH (09:57)
[2017-11-11] MEDS: Multivitamin W/ Minerals 1 TAB PO SCH (09:57)
[2017-11-11] MEDS: rOPINIRole HCl 1 MG TAB PO SCH ×3 (09:58→20:50)
[2017-11-11] MEDS: predniSONE 20 MG TAB PO SCH ×2 (09:58→20:50)
[2017-11-11] MEDS: Aspirin 325 MG TAB PO SCH (09:58)
[2017-11-11] MEDS: Famotidine 20 MG TAB PO SCH ×2 (09:58→20:48)
[2017-11-11] MEDS: Pregabalin 50 MG CAP PO SCH ×3 (09:59→20:46)
[2017-11-11] MEDS: Carvedilol 3.125 MG TAB PO SCH ×2 (09:59→16:10)
[2017-11-11] MEDS: FLONASE EA NARE SCH (10:00)
[2017-11-11] MEDS: Fluticasone Propionate Nasal Spray 16 gm Bottle NASAL SCH (10:01)
[2017-11-11] MEDS ORDERED: predniSONE 20 MG TAB PO SCH ×2 (10:11→10:15)
--- NOTE | 2017-11-11 10:51 | PRG ---
DATE OF SERVICE: 11/11/2017 SUBJECTIVE: The patient required blood transfusion yesterday because of the development of a hematom a near the urinary bladder. She also has bilateral large hematomas in the rectus abdominal muscles. Her breathing has actually improved and is probably back to baseline. PHYSICAL EXAMINATION: VITAL SIGNS: Temperature is 97.6, pulse 74, blood pressure 115/67, O2 sat 93% on room air. HEENT: Unremarkable. NECK: No JVD. LUNGS: Clear without wheezing or rhonchi. CARDIAC: S1, S2 regular. ABDOMEN: Soft visible bruising present. EXTREMITIES: No edema. LABORATORY DATA: Hemoglobin 6.7, hematocrit 19.9, platelet count 245. Sodium 134, potassium 5.3, ch loride 103, CO2 of 23, BUN 53, creatinine 1.6, glucose 228. ASSESSMENT: Development of hematomas in the abdomen and near the bladder which may be secondary to f alling. It looks like she was on anticoagulation with Lovenox at the time of admission, but then it was stopped fairly quickly. RECOMMENDATION: 1. Transfusion as you are doing. 2. Reduced steroid dose. 3. Hopefully, she will be able go home in a couple days if her counts remain stable.
[2017-11-11] MEDS: HumaLOG 300 UNITS/3 ML VIAL SC PRN ×2 (11:42→17:51)
--- NOTE | 2017-11-11 17:47 | PDOC.CTH ---
Cardiology Progress Note - Subjective She is doing better She has received blood transfusions. - Objective Vital Signs Temp Pulse Pulse Resp BP BP BP 11/11/17 14:50 98 F 97 16 122/83 11/11/17 14:28 83 16 11/11/17 11:20 81 16 11/11/17 09:57 115/67 11/11/17 08:31 11/11/17 08:30 74 20 11/11/17 08:00 97.7 F 104 H 20 115/67 Pulse Ox 11/11/17 14:50 94 L 11/11/17 14:28 94 L 11/11/17 11:20 95 11/11/17 09:57 11/11/17 08:31 93 L 11/11/17 08:30 93 L 11/11/17 08:00 96 Weight 240 lb 1.6 oz 11/10/17 11/11/17 11/12/17 06:59 06:59 06:59 Intake Total 1220 1940 0 Output Total 40 1150 Balance 1180 790 0 - Physical Examination General/Neuro: alert & oriented x3, NAD Neck: no JVD present Lungs: unlabored respirations Heart: RRR Abdomen: other: (tender to palpation, no rebound or guarding. ) Extremities: + edema B (trace) - Telemetry Telemetry Rhythm: NSR - Labs Result Diagrams: 11/11/17 05:12 11/11/17 05:12 Troponin/CKMB CK-MB (CK-2) 1.0 ng/mL (0-6.6) 11/04/17 20:17 Troponin I 1.854 ng/mL (< 0.028) H* 11/05/17 02:38 - Assessment/Plan 1. NSTEMI, demand ischemia likely. 2. Pneumonia 3. HTN 4. Pleural effusion 5. History of bariatric surgery. 6. Intra abdominal hematoma. PLAN: - IV abx per primary team. - PT/OT - Try to keep Hgb above 8 ideally above 10. - Continues to drop hgb. Need to wait to counts to be stable before considering discharge.
[2017-11-11] MEDS: Atorvastatin Calcium 40 MG TAB PO SCH (20:48)
[2017-11-11] MEDS: Cefdinir 300 MG CAP PO SCH (20:49)
[2017-11-11] MEDS: metFORMIN XR 500 MG TAB PO SCH (20:49)
[2017-11-11] MEDS: traZODone HCl 50 MG TAB PO SCH (20:49)
[2017-11-11] MEDS: Ipratropium Bromide 0.03% Nasal Inhaler 30 ml Bottle EA NARE SCH (20:52)
--- NOTE | 2017-11-11 21:40 | PDOC.PN ---
- Subjective Encounter Start Date: 11/11/17 Encounter Start Time: 09:40 Pt feeling better, still with some abd discomfort. received 1 unit PRBCs, repeat H/H hown 0.2 g/dL. no F/C, no N/V/D/c, no CP, SOB improved. + complaints of edema, worse than normal. updated her to the plan for more blood, lasix between units, and AM labs 10 point ROS performed and neg for all systems except as above - Objective Resuscitation Status: Resuscitation Status FULL:Full Resuscitation MAR Reviewed: Yes Vital Signs & Weight: Vital Signs (12 hours) Temp Pulse Pulse Resp BP BP BP 11/11/17 19:45 11/11/17 19:44 11/11/17 19:05 98.7 F 85 16 107/68 11/11/17 18:46 98 F 79 16 108/60 11/11/17 17:24 97.3 F L 86 16 142/69 H 11/11/17 16:00 97.3 F L 86 16 11/11/17 15:05 98.0 F 98 16 126/76 11/11/17 14:50 98 F 97 16 122/83 11/11/17 14:28 83 16 11/11/17 12:00 97.9 F 87 16 11/11/17 11:20 81 16 11/11/17 09:57 115/67 BP Pulse Ox 11/11/17 19:45 97 11/11/17 19:44 94 L 11/11/17 19:05 94 L 11/11/17 18:46 94 L 11/11/17 17:24 11/11/17 16:00 142/69 H 11/11/17 15:05 93 L 11/11/17 14:50 94 L 11/11/17 14:28 94 L 11/11/17 12:00 126/59 L 11/11/17 11:20 95 11/11/17 09:57 Weight Weight 240 lb 1.6 oz I&O: 11/10/17 11/11/17 11/12/17 06:59 06:59 06:59 Intake Total 1220 1940 350 Output Total 40 1150 Balance 1180 790 350 Result Diagrams: 11/11/17 05:12 11/11/17 05:12 Additional Labs: Accuchecks 0311/11/17 11/11/17 20:48 11:32 06:32 POC Glucose 252 H 426 H 327 H 11/09/17 20:58 POC Glucose 322 H Radiology Reviewed by me: Yes Phys Exam - Physical Examination Constitutional: NAD HEENT: PERRLA, moist MMs, sclera anicteric, oral pharynx no lesions Neck: no nodes, no JVD, supple, full ROM Respiratory: no wheezing, no rales, no rhonchi, clear to auscultation bilateral Cardiovascular: RRR, no significant murmur, no rub Gastrointestinal: soft, no distention, positive bowel sounds tender still Musculoskeletal: pulses present, edema present Neurological: non-focal, normal sensation, moves all 4 limbs Lymphatic: no nodes Psychiatric: normal affect, A&O x 3 Skin: no rash, normal turgor, cap refill <2 seconds Dx/Plan (1) Acute blood loss anemia Code(s): D62 - ACUTE POSTHEMORRHAGIC ANEMIA Status: Acute Comment: from rectus hematoma draining inteo pre-peitoneal hematoma near bladder. transfuse to keep Hgb above 8. diuscussed with Surgery, no need to drain at this point (2) Hypersensitivity pneumonitis Code(s): J67.9 - HYPERSENSITIVITY PNEUMONITIS DUE TO UNSPECIFIED ORGANIC DUST Status: Acute Comment: Suspected, continue Prednisone 40mg BID, Duonebs, hypersensitivity panel pending, continue Omnicef 600mg and Zithromax 250mg daily , on Fluc, whoch is not good coverage fdor histo, would need itraconazole. Will check urine histo Ag and serum histo ab (3) NSTEMI (non-ST elevated myocardial infarction) Code(s): I21.4 - NON-ST ELEVATION (NSTEMI) MYOCARDIAL INFARCTION Status: Resolved Comment: Cardiology consulted, continue ASA/Coreg/Lipitor, d/c Lovenox. Cards S/Od, okayed for D/C when h/H stable (4) Histoplasmosis Code(s): B39.9 - HISTOPLASMOSIS, UNSPECIFIED Status: Suspected Comment: Diflucan 200mg daily, pending final sputum analysis. FLuc not great, would need itra with good levels. will check ur Ag and serum Abs (5) Cellulitis of right leg Code(s): L03.115 - CELLULITIS OF RIGHT LOWER LIMB Status: Resolved (6) UTI (urinary tract infection) Status: Acute Qualifiers: Urinary tract infection type: acute cystitis Hematuria presence: with hematuria Qualified Code(s): N30.01 - Acute cystitis with hematuria (7) Acquired lymphedema Code(s): I89.0 - LYMPHEDEMA, NOT ELSEWHERE CLASSIFIED Status: Chronic (8) Diabetes type 2, controlled Code(s): E11.9 - TYPE 2 DIABETES MELLITUS WITHOUT COMPLICATIONS Status: Chronic Qualifiers: Diabetes mellitus snf insulin use: unspecified intermediate designer insulin use status Diabetes mellitus complication status: without complication Qualified Code(s): E11.9 - Type 2 diabetes mellitus without complications Comment: Stable, SSI, restart Metformin (9) Morbid obesity with BMI of 45.0-49.9, adult Code(s): E66.01 - MORBID (SEVERE) OBESITY DUE TO EXCESS CALORIES; Z68.42 - BODY MASS INDEX (BMI) 45.0-49.9, ADULT Status: Chronic Comment: Dietary counseling (10) Obstructive sleep apnea Code(s): G47.33 - OBSTRUCTIVE SLEEP APNEA (ADULT) (PEDIATRIC) Status: Chronic (11) Restless leg syndrome Status: Chronic (12) Encephalopathy acute Code(s): G93.40 - ENCEPHALOPATHY, UNSPECIFIED Status: Resolved (13) Lactic acidosis Code(s): E87.2 - ACIDOSIS Status: Resolved (14) Sepsis with acute organ dysfunction Code(s): A41.9 - SEPSIS, UNSPECIFIED ORGANISM; R65.20 - SEVERE SEPSIS WITHOUT SEPTIC SHOCK Status: Resolved (15) Rectus sheath hematoma Code(s): S30.1XXA - CONTUSION OF ABDOMINAL WALL, INITIAL ENCOUNTER Status: Acute (16) Pelvic haematoma Code(s): IDJ5253 - Status: Acute - Plan cont current plan of care, continue antibiotics, PT/OT, out of bed/ambulate * .
[2017-11-12] MEDS: ALPRAZolam 0.5 MG TAB PO PRN ×2 (01:52→09:07)
[2017-11-12 06:06] LABS: Anion Gap 14 mmol/L (10-20); BUN (Urea Nitrogen) 54 mg/dL (9.8-20.1); Calc. Creatinine Clearance 66 mL/min (70-130); Calcium 8.4 mg/dL (7.8-10.44); Carbon Dioxide 24 mmol/L (23-31); Chloride 102 mmol/L (98-107); Estimated GFR-MDRD 36; Glucose 243 mg/dL (80-115); Potassium 4.8 mmol/L (3.5-5.1); Sodium 135 mmol/L (136-145)
[2017-11-12 07:48] LABS: Hemoglobin 8.5 g/dL (12.0-16.0); Lymphocytes 12 % (21-51); MDiff Complete? YES; Mean Corpuscular HGB CONC 33.8 g/dL (32.0-36.0); Mean Corpuscular Hemoglobin 29.8 pg (27.0-31.0); Mean Corpuscular Volume 88.3 fl (81.0-99.0); Monocytes 3 % (0-10); Neutrophil 85 % (42-75); Platelet Count 247 thou/uL (130-400); RBC Distribution Width 14.4 % (11.5-14.5); Red Blood Cell (RBC) Count 2.84 mill/uL (4.20-5.40); White Blood Cell (WBC) Count 14.7 thou/uL (4.8-10.8)
[2017-11-12] MEDS: Ipratropium Bromide 0.03% Nasal Inhaler 30 ml Bottle EA NARE SCH ×4 (08:52→09:00)
[2017-11-12] MEDS: HumaLOG 300 UNITS/3 ML VIAL SC PRN ×3 (08:54→17:17)
[2017-11-12] MEDS: Pregabalin 50 MG CAP PO SCH ×2 (08:55→15:07)
[2017-11-12] MEDS: rOPINIRole HCl 1 MG TAB PO SCH ×2 (08:55→16:28)
[2017-11-12] MEDS: Fluconazole 100 MG TAB PO SCH (08:56)
[2017-11-12] MEDS: Famotidine 20 MG TAB PO SCH (08:56)
[2017-11-12] MEDS: Carvedilol 3.125 MG TAB PO SCH ×2 (08:56→17:18)
[2017-11-12] MEDS: Lisinopril 10 MG TAB PO SCH (08:56)
[2017-11-12] MEDS: predniSONE 20 MG TAB PO SCH (08:56)
[2017-11-12] MEDS: Aspirin 325 MG TAB PO SCH (08:56)
[2017-11-12] MEDS: Multivitamin W/ Minerals 1 TAB PO SCH (08:56)
[2017-11-12] MEDS: FLONASE EA NARE SCH (08:58)
[2017-11-12] MEDS ORDERED: Dextrose 5% in Water 1,000 ML IV PRN (10:34)
[2017-11-12] MEDS ORDERED: HumaLOG 300 UNITS/3 ML VIAL SC PRN (10:34)
[2017-11-12] MEDS ORDERED: Dextrose 50% Abboject 50 ML SYRINGE SLOW IVP PRN (10:34)
--- NOTE | 2017-11-12 12:42 | PDOC.CTH ---
Cardiology Progress Note - Subjective No new issues. She is feeling much better today. - Objective Vital Signs Temp Pulse Resp BP BP BP Pulse Ox 11/12/17 12:11 86 16 11/12/17 08:56 115/69 11/12/17 08:49 98 11/12/17 08:47 83 12 11/12/17 08:10 96.3 F L 88 18 115/69 92 L 11/12/17 04:00 97.4 F L 84 20 144/66 H 93 L 11/12/17 03:40 91 L Weight 238 lb 11/11/17 11/12/17 11/13/17 06:59 06:59 06:59 Intake Total 1940 1430 Output Total 1150 2300 Balance 790 -870 - Physical Examination General/Neuro: alert & oriented x3, NAD Neck: no JVD present Lungs: unlabored respirations, other: (Coarse breath sounds left base. ) Heart: RRR Abdomen: NT/ND Extremities: + edema B (1+) - Telemetry Telemetry Rhythm: NSR - Labs Result Diagrams: 11/12/17 05:24 11/12/17 05:24 Troponin/CKMB CK-MB (CK-2) 1.0 ng/mL (0-6.6) 11/04/17 20:17 Troponin I 1.854 ng/mL (< 0.028) H* 11/05/17 02:38 - Assessment/Plan 1. NSTEMI, demand ischemia likely. 2. Pneumonia 3. HTN 4. Pleural effusion 5. History of bariatric surgery. 6. Intra abdominal hematoma. PLAN: - IV abx per primary team. - PT/OT - Try to keep Hgb above 8 ideally above 10. - Hgb stabilizing. No active cardiac issues. Will sign off. Please call with any questions.
[2017-11-12 15:53] VITALS: BP 138/65; TEMP 97.7
[2017-11-12 16:13] LABS: Hemoglobin 9.5 g/dL (12.0-16.0)
--- NOTE | 2017-11-12 20:12 | PRG ---
DATE OF SERVICE: 11/12/2017 SERVICE: Pulmonary Medicine. INTERVAL HISTORY: The patient is doing fantastic from a respiratory standpoint. She denies any chest pain, fevers, chills, nausea or vomiting. Otherwise, she is returning to her usual state of health. PHYSICAL EXAMINATION: VITAL SIGNS: Afebrile, pulse 91, blood pressure 138/65, respirations 20 and saturation 96% on room air. GENERAL: The patient is awake and alert, in no apparent distress. LUNGS: Decent air entry. There is no prolonged expiratory phase or wheezing. HEART: Normal rate and regular. ABDOMEN: Soft, nontender and nondistended. Bowel sounds are positive. MUSCULOSKELETAL: No cyanosis or clubbing. There is trace pitting in the bilateral lower extremities. NEUROLOGIC: Grossly nonfocal. LABORATORY DATA: Hemoglobin is stable at 9.5. Creatinine 1.45. Urine histoplasma is negative. Blood cultures x2, and Influenza A and B are unremarkable. ASSESSMENT: 1. Acute hypoxic respiratory failure. 2. Acute blood loss anemia. 3. Pulmonary infiltrate. DISCUSSION AND PLAN: The patient is doing fine from a respiratory standpoint. She is being transitioned home today. No reason that she cannot go home from a pulmonary perspective. She will need to follow up with Dr. Wang as previously directed in the outpatient setting. REYNALDO
--- NOTE | 2017-11-22 16:03 | EKG ---
Test Reason : Blood Pressure : / mmHG Vent. Rate : 101 BPM Atrial Rate : 101 BPM P-R Int : 178 ms QRS Dur : 086 ms QT Int : 324 ms P-R-T Axes : 064 053 065 degrees QTc Int : 420 ms Sinus tachycardia No STEMI Otherwise normal ECG Confirmed by MICHELLE Iglesias, STEPHEN ([id number]), image editor ROYER CASTILLO ([id number]) on 11/22/2017 4:02:29 PM Referred By: Confirmed By:STEPHEN MARTINEZ M.D.
== END 2017-11-12 19:49 | disposition home health service (06) | DRG 871 ==
LOC: ERS 17:14 → 2NO 11-05 00:19
PROVIDERS: ADMIT Internal Medicine; ATTEND Internal Medicine
PROC: 30233N1 Transfusion of Nonautologous Red Blood Cells into Peripheral Vein, Percutaneous Approach (ICD-10-PCS; principal; 2017-11-11)
PROC: 30233K1 Transfusion of Nonautologous Frozen Plasma into Peripheral Vein, Percutaneous Approach (ICD-10-PCS; 2017-11-11)
DX: A41.9 Sepsis, unspecified organism (principal); I21.A1 Myocardial infarction type 2; B39.2 Pulmonary histoplasmosis capsulati, unspecified; G93.40 Encephalopathy, unspecified; J90 Pleural effusion, not elsewhere classified; E87.2 Acidosis; B39.9 Histoplasmosis, unspecified; S36.892A Contusion of other intra-abdominal organs, initial encounter; J67.9 Hypersensitivity pneumonitis due to unspecified organic dust; D62 Acute posthemorrhagic anemia; Z68.41 Body mass index [BMI] 40.0-44.9, adult; L03.115 Cellulitis of right lower limb; N30.01 Acute cystitis with hematuria; I95.9 Hypotension, unspecified; E66.01 Morbid (severe) obesity due to excess calories; R65.20 Severe sepsis without septic shock; E11.9 Type 2 diabetes mellitus without complications; R15.9 Full incontinence of feces; Z98.84 Bariatric surgery status; Z85.048 Personal history of other malignant neoplasm of rectum, rectosigmoid junction, and anus; Z85.89 Personal history of malignant neoplasm of other organs and systems; Z92.21 Personal history of antineoplastic chemotherapy; Z92.3 Personal history of irradiation; I10 Essential (primary) hypertension; Z79.84 Long term (current) use of oral hypoglycemic drugs; I89.0 Lymphedema, not elsewhere classified; F41.9 Anxiety disorder, unspecified; Z87.891 Personal history of nicotine dependence; Z91.040 Latex allergy status; G47.33 Obstructive sleep apnea (adult) (pediatric); G25.81 Restless legs syndrome; W07.XXXA Fall from chair, initial encounter; Y92.230 Patient room in hospital as the place of occurrence of the external cause; F32.9 Major depressive disorder, single episode, unspecified
CPT/HCPCS: 36415; 36416; 36430; 70450; 71045; 74176; 80048; 80053; 80061; 82274; 82550; 82553; 82565; 82607; 83605; 83735; 83880; 84484; 85007; 85014; 85018; 85025; 85027; 85049; 86698; 86850; 86900; 86901; 87040; 87385; 87804; 93005; 93306; 94640; 94760; 96365; 96367; 96374; 96375; A4216; G8978-GP-CI; G8979-GP-CI; G8980-GP-CI; J0456; J0696; J1650; J1940; J2920; J2930; J3411; J7042; J7050; J7506; J7611; J7620; P9016; P9059

== ENCOUNTER 2017-12-06 10:37 | Outpatient (CLI) | payer MEDICARE, BC ==
--- NOTE | 2017-12-06 12:01 | RAD ---
CHEST 2 VIEWS: Date: 12/06/17 HISTORY: Dyspnea. COMPARISON: Chest 1 view dated 11/04/17. FINDINGS: There is layering opacity in left lung base. There is thickening of the right minor fissure. No focal air space consolidation, pneumothorax, or effusion. IMPRESSION: No acute intrathoracic abnormality. POS: [facility]
== END 2017-12-06 10:38 | disposition home or self-care (01) ==
LOC: RAD 10:37
PROVIDERS: ATTEND Internal Medicine Critical Care Medicine
DX: R06.00 Dyspnea, unspecified (principal)
CPT/HCPCS: 71046

== ENCOUNTER 2018-07-12 10:16 | Outpatient (CLI) | payer MEDICARE, BC ==
--- NOTE | 2018-07-12 13:34 | RAD ---
CHEST TWO VIEWS: History: Dyspnea. Comparison: 12-06-17 FINDINGS: There is a chronic thickening of the right minor fissure. No focal confluent airspace consolidation, pneumothorax, or effusion. Cardiac silhouette and mediastinal contours are similar. IMPRESSION: Chronic thickening right minor fissure. POS: [facility]
== END 2018-07-12 10:17 | disposition home or self-care (01) ==
LOC: RAD 10:16
PROVIDERS: ATTEND Internal Medicine Critical Care Medicine
DX: R06.00 Dyspnea, unspecified (principal)
CPT/HCPCS: 71046

== ENCOUNTER 2019-07-25 10:34 | Outpatient (CLI) | payer MEDICARE, BC ==
--- NOTE | 2019-07-25 11:21 | RAD ---
PA AND LATERAL VIEWS CHEST: Date: 07/25/19 HISTORY: Dyspnea. FINDINGS: Comparison made with exam of 07/12/18. Chronic thickening of the right minor fissure again seen. Heart size normal. Lungs are well expanded without focal areas of consolidation, pneumothoraces, or pleural effusions. IMPRESSION: Stable exam. No acute process. POS: [facility]
== END 2019-07-25 10:35 | disposition home or self-care (01) ==
LOC: RAD 10:34
PROVIDERS: ATTEND Internal Medicine Critical Care Medicine
DX: R06.00 Dyspnea, unspecified (principal)
CPT/HCPCS: 71046

== ENCOUNTER 2021-02-24 06:18 | Day surgery (SDC) | payer MEDICARE, BC ==
[2021-02-21 13:59] VITALS: BMI 35.9
[2021-02-24 08:00] LABS: SARS-CoV-2 NAA Rapid Test Not Detected (NotDetected)
[2021-02-24] MEDS ORDERED: PHENYLEPHRINE-NS 100 MCG/ML 10 ML SYRINGE ONE (09:40)
[2021-02-24] MEDS ORDERED: PROPOFOL 200 MG/20 ML VIAL ONE (09:40)
[2021-02-24] MEDS ORDERED: Lidocaine 1% PF 5 ML VIAL ONE (09:40)
== END 2021-02-24 11:38 | disposition home or self-care (01) ==
LOC: SDC 06:18
PROVIDERS: ATTEND Internal Medicine Gastroenterology
PROC: 0DBM8ZX Excision of Descending Colon, Via Natural or Artificial Opening Endoscopic, Diagnostic (ICD-10-PCS; principal; 2021-02-24)
PROC: 0DBL8ZX Excision of Transverse Colon, Via Natural or Artificial Opening Endoscopic, Diagnostic (ICD-10-PCS; 2021-02-24)
DX: D12.3 Benign neoplasm of transverse colon (principal); D12.4 Benign neoplasm of descending colon; K59.00 Constipation, unspecified; K56.699 Other intestinal obstruction unspecified as to partial versus complete obstruction; M19.90 Unspecified osteoarthritis, unspecified site; J45.909 Unspecified asthma, uncomplicated; E11.9 Type 2 diabetes mellitus without complications; R63.4 Abnormal weight loss; Z68.36 Body mass index [BMI] 36.0-36.9, adult; Z85.048 Personal history of other malignant neoplasm of rectum, rectosigmoid junction, and anus; Z79.82 Long term (current) use of aspirin; Z79.84 Long term (current) use of oral hypoglycemic drugs; Z79.899 Other long term (current) drug therapy; Z91.040 Latex allergy status; Z91.048 Other nonmedicinal substance allergy status; Z98.84 Bariatric surgery status; Z20.822 Contact with and (suspected) exposure to COVID-19
CPT/HCPCS: 45385; 82962; 88305; U0002; U0005; 36416; J2704

== ENCOUNTER 2021-06-04 15:01 | Outpatient (CLI) | payer MEDICARE, BC | END 2021-06-04 15:02 | disposition home or self-care (01) | LOC: BICULT 15:01 | PROVIDERS: ATTEND Physician Assistant | DX: L03.115 Cellulitis of right lower limb (principal); R60.0 Localized edema; D64.9 Anemia, unspecified; I89.0 Lymphedema, not elsewhere classified; E11.9 Type 2 diabetes mellitus without complications ==

== ENCOUNTER 2021-11-21 11:49 | Outpatient (CLI) | payer MEDICARE, BC | END 2021-11-21 11:50 | disposition home or self-care (01) | LOC: ULT 11:49 | PROVIDERS: ATTEND Family Medicine | DX: I82.401 Acute embolism and thrombosis of unspecified deep veins of right lower extremity (principal); I89.0 Lymphedema, not elsewhere classified ==

== ENCOUNTER 2022-03-03 10:13 | Outpatient (CLI) | payer MEDICARE, BC | END 2022-03-03 10:14 | disposition home or self-care (01) | LOC: BICRAD 10:13 | PROVIDERS: ATTEND Physical Medicine & Rehabilitation | DX: M25.561 Pain in right knee (principal); M25.552 Pain in left hip; M25.572 Pain in left ankle and joints of left foot ==

== ENCOUNTER 2022-07-08 07:51 | Outpatient (CLI) | payer MEDICARE, BC | END 2022-07-08 07:52 | disposition home or self-care (01) | LOC: CT 07:51 | PROVIDERS: ATTEND Podiatrist | DX: R39.198 Other difficulties with micturition (principal); N99.841 Postprocedural hematoma of a genitourinary system organ or structure following other procedure; N32.89 Other specified disorders of bladder; Z85.44 Personal history of malignant neoplasm of other female genital organs; Z85.048 Personal history of other malignant neoplasm of rectum, rectosigmoid junction, and anus; Z87.448 Personal history of other diseases of urinary system | CPT/HCPCS: 74178 ==